=== PATIENT | male | born 1945 | race Caucasian/White ===

== ENCOUNTER 2019-11-20 08:30 | Outpatient (RCR) | payer MEDICARE, SELFPAY ==
--- NOTE | 2019-10-23 13:43 | PTOPEVAL ---
Thank you for referring this patient to [facility]. Please review, sign, date and return this plan of care YRIS. Pt seen for PT eval following THR on right. He demonstrates impairments with muscle weakness, decreased functional mobility with transfers, ambulation and negotiating steps. He demonstrates decreased safety and compliance with hip precautions. Cont PT 2-3x/wk x 6 wks. I agree with and certify that the following plan of care is medically necessary. Referring Physician Date Admitting Provider: Attending Provider: PHYSICIAN NOT ON STAFF Referring Provider: Dr. Yung Umana DO *PT Outpatient Evaluation Start: 10/23/19 12:38 Freq: Status: Active Protocol: Document 10/23/19 12:36 GRETA (Rec: 10/23/19 13:36 GRETA [id number]) Therapy Assessment Status Assessment Status Assessment Status Evaluation Outpatient Past Medical History Cardiovascular History Hx Coronary Artery Bypass Graft Yes: 2017 Hx Hypertension Yes Hx Myocardial Infarction Yes Gastrointestinal History Hx Gastroesophageal Reflux Disease Yes Musculoskeletal History Hx Joint Replacement Yes: right THR 10/09/19, left THR 2016 Endocrine History Hx Diabetes Yes Evaluation Information Problem Diagnosis right THR Onset 10/09/19 Cause OA Subjective Information Pt is s/p THR on 10/09/19 with 4 Query Text:As Reported By Patient/ day actue stay. He is on his Family posterior hip precautions of no hip add, no hip flex >90 dg and no hip IR. He has adaptive equipment for donning shoes/socks. States he is performing his HEP 2-3x/wk. He progressed to a SBQC 3 days ago from the walker. He reports limitations with walking, steps, donning shoes/ socks. He puts out a large garden and wants to return to that activties. He also performs wood working activities. Previous Treatments Previous Treatments For This Problem acute care Prior Level of Function Activity Level (Last 3 Months) Hand Dominance Right Activity of Daily Living Ability Independent Indoor/Home Mobility Independent Community Mobility Independent Stairs Ability Independent Cooking No Cleaning No Laundry No Shopping No Driving
--- NOTE | 2019-11-20 11:10 | PTOPEVAL ---
Thank you for referring this patient to [facility]. Please review, sign, date and return this plan of care YRIS. pt has received 9 therapy visits from 10/23-11/20/19 to address impairments related to his total hip replacement surgery. He has reached maximal potential with skilled therapy with therapy goals achieved. Plan for DC of skilled therapy with pt to continue with his HEP. I agree with and certify that the following plan of care is medically necessary. Referring Physician Date Attending Provider: PHYSICIAN NOT ON STAFF Referring Provider: *PT Outpatient Re-Evaluation/Discharge Start: 10/23/19 12:38 Freq: Status: Active Protocol: Document 11/20/19 08:30 CAP (Rec: 11/20/19 08:58 CAP [id number]) Evaluation Information Problem Diagnosis right THR Onset 10/09/19 Cause OA Additional Evaluation Detail Pt is s/p THR on 10/09/19 with 4 day actue stay. He is on his posterior hip precautions of no hip add, no hip flex >90 dg and no hip IR. He has adaptive equipment for donning shoes/socks. Subjective Information He is no longer using a AD at Query Text:As Reported By Patient/ home or community. Family He is performing his HEP daily . He walks his property daily for 30 min with min discomfort . Denies problems with IADL's and ADL's. HE cont to use his adaptive equipment for his shoes and socks. He has started his garden and cont to perform his work around the house. He is able to perform steps without difficulty or fear now. Pain Assessment Timing of Pain Assessment Timing of Pain Assessment Re-assessment Pain Scale Pain Scale Used Numeric (1 - 10) Self Report Pain Assessment Right Hip(s) Reported Pain Level 0 Pain Description Aching Pain Frequency Intermittent Greatest Pain Intensity 1 Pain Aggravating Factors Walking Pain Score Pain Score 0: Self Report Lower Extremity Range of Motion Hip Range of Motion Right Hip Abduction Range of Motion - Active 30 Hip Abduction Range of Motion - Passive 34 Lower Extremity Muscle Strength Testing Hip Strength Left Hip Flexion Strength 5 Normal Hip Extension Strength 4 Good Hip Abduction Strength 3+ Fair + Hip Adduction Strength 4 Good Hi
== END 2020-01-07 08:41 | disposition home or self-care (01) ==
LOC: ANHPT 08:30
DX: Z47.1 Aftercare following joint replacement surgery (principal); Z96.641 Presence of right artificial hip joint
CPT/HCPCS: 97110; 97162; 97530

== ENCOUNTER 2020-02-18 07:46 | Outpatient (CLI) | payer MEDICARE, SELFPAY ==
[2020-02-18 08:37] LABS: Cholesterol 142 mg/dL (0-200); HDL Direct 29 mg/dL; Triglycerides 212 mg/dL (<150)
[2020-02-18 08:49] LABS: LDL Cholesterol Direct 78 mg/dL
== END 2020-02-18 07:47 | disposition home or self-care (01) ==
LOC: ANHLAB 07:49
PROVIDERS: Visit Provider Internal Medicine Cardiovascular Disease
DX: E78.5 Hyperlipidemia, unspecified (principal); E11.69 Type 2 diabetes mellitus with other specified complication
CPT/HCPCS: 36415; 80061

== ENCOUNTER 2020-07-04 07:02 | Outpatient (CLI) | payer MEDICARE, SELFPAY ==
[2020-07-04 08:01] LABS: Alanine Aminotransferase 17 U/L (4-50); Albumin Level 4.5 g/dL (3.5-5.1); Alkaline Phosphatase 121 U/L (38-126); Anion Gap 11 mmol/L (8-16); Aspartate Amino Transferase 27 U/L (17-59); Bilirubin,Total 0.6 mg/dL (0.2-1.3); Blood Urea Nitrogen 20 mg/dL (9-20); Calcium 9.5 mg/dL (8.4-10.2); Carbon Dioxide 27 mmol/L (22-30); Chloride 103 mmol/L (98-107); Cholesterol 149 mg/dL (0-200); Estimated Glomerular Filt Rate > 60; Glucose 140 mg/dL (75-110); HDL Direct 33 mg/dL; Potassium 4.4 mmol/L (3.4-5.0); Sodium 141 mmol/L (137-145); Triglycerides 287 mg/dL (<150)
[2020-07-04 08:11] LABS: Creatinine Urine 238.6 mg/dL
[2020-07-04 08:11] LABS: Hemoglobin A1C 6.5 % (<5.7)
[2020-07-04 08:12] LABS: LDL Cholesterol Direct 73 mg/dL
[2020-07-04 08:14] LABS: MALB Creatinine Ratio 13.5 mg/g (0-30); Microalbumin Urine Random 32.2 mg/L (0-16.7)
== END 2020-07-04 07:03 | disposition home or self-care (01) ==
PROVIDERS: Visit Provider Physician Assistant
DX: E11.59 Type 2 diabetes mellitus with other circulatory complications (principal); I10 Essential (primary) hypertension; E78.5 Hyperlipidemia, unspecified; R53.83 Other fatigue
CPT/HCPCS: 36415; 80053; 80061; 82043; 83036; 84443

== ENCOUNTER 2021-07-13 07:46 | Outpatient (CLI) | payer MEDICARE, SELFPAY ==
[2021-07-13 08:30] LABS: Basophils Absolute Auto 0.1 K/mm3 (0.0-0.1); Basophils Percent Auto 0.7 % (0.2-1.2); Eosinophils Absolute Auto 0.4 K/mm3 (0-0.3); Eosinophils Percent Auto 4.9 % (0-4.4); Hematocrit 41.7 % (42.0-52.0); Hemoglobin 13.7 g/dL (14.0-18.0); Immature Granulocyte Absolute 0.02 K/mm3 (0.00-0.031); Immature Granulocyte Percent A 0.2 % (0-0.5); Lymphocytes Absolute Auto 2.48 K/mm3 (0.9-3.2); Mean Corpuscular HGB Conc 32.9 g/dl (32-36); Mean Corpuscular Hemoglobin 29.3 pg (26-34); Mean Corpuscular Volume 89.1 fl (80-100); Mean Platelet Volume 9.2 fl (7.4-10.4); Monocytes Absolute Auto 0.6 K/mm3 (0.1-0.6); Monocytes Percent Auto 6.4 % (2.6-8.5); Neutrophils Absolute Auto 5.3 K/mm3 (1.3-6.7); Neutrophils Percent Auto 59.8 % (45.5-73.1); Platelet Count Result 341 k/mm3 (150-375); Red Blood Count 4.68 M/mm3 (4.6-6.20); Red Cell Distribution Width 13.8 % (11.5-14.5); White Blood Count 8.9 K/mm3 (4.5-10.0)
[2021-07-13 09:39] LABS: Alanine Aminotransferase 13 U/L (4-50); Albumin Level 4.3 g/dL (3.5-5.1); Alkaline Phosphatase 110 U/L (38-126); Anion Gap 6 mmol/L (8-16); Aspartate Amino Transferase 26 U/L (17-59); Bilirubin,Total 0.5 mg/dL (0.2-1.3); Blood Urea Nitrogen 18 mg/dL (9-20); Calcium 9.1 mg/dL (8.4-10.2); Carbon Dioxide 28 mmol/L (22-30); Chloride 106 mmol/L (98-107); Glucose 128 mg/dL (65-110); Potassium 4.5 mmol/L (3.4-5.0); Sodium 140 mmol/L (137-145)
[2021-07-13 09:42] LABS: Estimated Glomerular Filt Rate > 60
[2021-07-14 11:33] LABS: Hemoglobin A1C 6.2 % (<5.7)
== END 2021-07-13 07:47 | disposition home or self-care (01) ==
LOC: ANHLAB 07:50
PROVIDERS: Visit Provider Physician Assistant
DX: E11.59 Type 2 diabetes mellitus with other circulatory complications (principal); I15.2 Hypertension secondary to endocrine disorders; E11.69 Type 2 diabetes mellitus with other specified complication; E78.5 Hyperlipidemia, unspecified
CPT/HCPCS: 36415; 80053; 83036; 84443; 85025

== ENCOUNTER 2022-07-28 07:07 | Outpatient (CLI) | payer MEDICARE, SELFPAY ==
[2022-07-28 07:45] LABS: Hemoglobin A1C 6.9 % (<5.7)
[2022-07-28 07:47] LABS: Alanine Aminotransferase 16 U/L (6-50); Albumin Level 4.5 g/dL (3.5-5.1); Alkaline Phosphatase 114 U/L (38-126); Anion Gap 10 mmol/L (8-16); Aspartate Amino Transferase 28 U/L (17-59); Bilirubin,Total 0.5 mg/dL (0.2-1.3); Blood Urea Nitrogen 16 mg/dL (9-20); Calcium 9.1 mg/dL (8.4-10.2); Carbon Dioxide 26 mmol/L (22-30); Chloride 106 mmol/L (98-107); Cholesterol 123 mg/dL (0-200); Estimated Glomerular Filt Rate > 60; Glucose 131 mg/dL (65-110); HDL Direct 29 mg/dL; Potassium 4.9 mmol/L (3.4-5.0); Sodium 142 mmol/L (137-145); Triglycerides 220 mg/dL (<150)
[2022-07-28 07:51] LABS: Basophils Percent Auto 0.4 % (0.2-1.2); Eosinophils Absolute Auto 0.5 K/mm3 (0-0.3); Eosinophils Percent Auto 4.8 % (0-4.4); Hematocrit 44.1 % (42.0-52.0); Hemoglobin 14.6 g/dL (14.0-18.0); Immature Granulocyte Absolute 0.04 K/mm3 (0.00-0.031); Immature Granulocyte Percent A 0.4 % (0-0.5); Lymphocytes Absolute Auto 2.49 K/mm3 (0.9-3.2); Lymphocytes Percent Auto 25.2 % (18.3-44.2); Mean Corpuscular HGB Conc 33.1 g/dl (32-36); Mean Corpuscular Hemoglobin 29.5 pg (26-34); Mean Corpuscular Volume 89.1 fl (80-100); Monocytes Absolute Auto 0.7 K/mm3 (0.1-0.6); Monocytes Percent Auto 6.9 % (2.6-8.5); Neutrophils Absolute Auto 6.2 K/mm3 (1.3-6.7); Neutrophils Percent Auto 62.3 % (45.5-73.1); Platelet Count Result 391 k/mm3 (150-375); Red Blood Count 4.95 M/mm3 (4.6-6.20); Red Cell Distribution Width 13.8 % (11.5-14.5); White Blood Count 9.9 K/mm3 (4.5-10.0)
[2022-07-28 07:59] LABS: LDL Cholesterol Direct 54 mg/dL
[2022-07-28 08:22] LABS: Creatinine Urine 94.2 mg/dL
[2022-07-28 08:26] LABS: MALB Creatinine Ratio 87.3 mg/g (0-30); Microalbumin Urine Random 82.2 mg/L (0-16.7)
== END 2022-07-28 07:08 | disposition home or self-care (01) ==
LOC: ANHLAB 07:11
PROVIDERS: Visit Provider Physician Assistant
DX: R53.83 Other fatigue (principal); E11.59 Type 2 diabetes mellitus with other circulatory complications; I15.2 Hypertension secondary to endocrine disorders
CPT/HCPCS: 36415; 80053; 80061; 82043; 82607; 83036; 84443; 85025

== ENCOUNTER 2023-05-16 07:31 | Outpatient (CLI) | payer MEDICARE, SELFPAY ==
[2023-05-16 08:31] LABS: Basophils Absolute Auto 0.1 K/mm3 (0.0-0.1); Basophils Percent Auto 0.5 % (0.2-1.2); Eosinophils Absolute Auto 0.3 K/mm3 (0-0.3); Eosinophils Percent Auto 2.9 % (0-4.4); Hematocrit 44.5 % (42.0-52.0); Hemoglobin 14.2 g/dL (14.0-18.0); Immature Granulocyte Absolute 0.03 K/mm3 (0.00-0.031); Immature Granulocyte Percent A 0.3 % (0-0.5); Lymphocytes Absolute Auto 2.35 K/mm3 (0.9-3.2); Lymphocytes Percent Auto 24.4 % (18.3-44.2); Mean Corpuscular HGB Conc 31.9 g/dl (32-36); Mean Corpuscular Hemoglobin 28.6 pg (26-34); Mean Corpuscular Volume 89.7 fl (80-100); Mean Platelet Volume 9.5 fl (7.4-10.4); Monocytes Absolute Auto 0.5 K/mm3 (0.1-0.6); Monocytes Percent Auto 5.4 % (2.6-8.5); Neutrophils Absolute Auto 6.4 K/mm3 (1.3-6.7); Neutrophils Percent Auto 66.5 % (45.5-73.1); Platelet Count Result 392 k/mm3 (150-375); Red Blood Count 4.96 M/mm3 (4.6-6.20); Red Cell Distribution Width 14.5 % (11.5-14.5); White Blood Count 9.7 K/mm3 (4.5-10.0)
[2023-05-16 08:53] LABS: Alanine Aminotransferase 13 U/L (6-50); Albumin Level 4.6 g/dL (3.5-5.1); Alkaline Phosphatase 102 U/L (38-126); Anion Gap 6 mmol/L (8-16); Aspartate Amino Transferase 24 U/L (17-59); Bilirubin,Total 0.6 mg/dL (0.2-1.3); Blood Urea Nitrogen 16 mg/dL (9-20); Calcium 9.3 mg/dL (8.4-10.2); Carbon Dioxide 30 mmol/L (22-30); Chloride 104 mmol/L (98-107); Cholesterol 120 mg/dL (0-200); Estimated Glomerular Filt Rate > 60; Glucose 114 mg/dL (65-110); HDL Direct 32 mg/dL; Potassium 4.7 mmol/L (3.4-5.0); Sodium 140 mmol/L (137-145); Triglycerides 183 mg/dL (<150)
[2023-05-16 09:04] LABS: LDL Cholesterol Direct 59 mg/dL
[2023-05-16 09:31] LABS: Creatinine Urine 157.8 mg/dL
[2023-05-16 09:36] LABS: MALB Creatinine Ratio 54.2 mg/g (0-30); Microalbumin Urine Random 85.6 mg/L (0-16.7)
== END 2023-05-16 07:32 | disposition home or self-care (01) ==
PROVIDERS: Visit Provider Physician Assistant
DX: R53.83 Other fatigue (principal); E11.69 Type 2 diabetes mellitus with other specified complication; E78.2 Mixed hyperlipidemia
CPT/HCPCS: 36415; 80053; 80061; 82043; 83036; 84443; 85025

== ENCOUNTER 2023-10-14 09:25 | Outpatient (CLI) | payer MEDICARE, SELFPAY ==
[2023-10-14 10:10] LABS: Anion Gap 7 mmol/L (8-16); Blood Urea Nitrogen 24 mg/dL (9-20); Calcium 9.2 mg/dL (8.4-10.2); Carbon Dioxide 25 mmol/L (22-30); Chloride 108 mmol/L (98-107); Estimated Glomerular Filt Rate > 60; Glucose 107 mg/dL (65-110); Potassium 4.7 mmol/L (3.4-5.0); Sodium 140 mmol/L (137-145)
== END 2023-10-14 09:26 | disposition home or self-care (01) ==
LOC: ANHLAB 09:28
PROVIDERS: Visit Provider Internal Medicine Cardiovascular Disease
DX: E11.59 Type 2 diabetes mellitus with other circulatory complications (principal); I15.2 Hypertension secondary to endocrine disorders
CPT/HCPCS: 36415; 80048

== ENCOUNTER 2023-11-19 08:02 | Outpatient (CLI) | payer MEDICARE, SELFPAY ==
[2023-11-19 08:48] LABS: Basophils Absolute Auto 0.1 K/mm3 (0.0-0.1); Basophils Percent Auto 0.5 % (0.2-1.2); Eosinophils Absolute Auto 0.5 K/mm3 (0-0.3); Eosinophils Percent Auto 4.5 % (0-4.4); Hematocrit 42.9 % (42.0-52.0); Hemoglobin 13.9 g/dL (14.0-18.0); Immature Granulocyte Absolute 0.03 K/mm3 (0.00-0.031); Immature Granulocyte Percent A 0.3 % (0-0.5); Lymphocytes Absolute Auto 2.32 K/mm3 (0.9-3.2); Lymphocytes Percent Auto 22.8 % (18.3-44.2); Mean Corpuscular HGB Conc 32.4 g/dl (32-36); Mean Corpuscular Volume 89.6 fl (80-100); Mean Platelet Volume 9.4 fl (7.4-10.4); Monocytes Absolute Auto 0.5 K/mm3 (0.1-0.6); Monocytes Percent Auto 4.7 % (2.6-8.5); Neutrophils Absolute Auto 6.8 K/mm3 (1.3-6.7); Neutrophils Percent Auto 67.2 % (45.5-73.1); Platelet Count Result 366 k/mm3 (150-375); Red Blood Count 4.79 M/mm3 (4.6-6.20); Red Cell Distribution Width 14.6 % (11.5-14.5); White Blood Count 10.2 K/mm3 (4.5-10.0)
[2023-11-19 11:18] LABS: Creatinine Urine 178.4 mg/dL
[2023-11-19 11:19] LABS: Alanine Aminotransferase 11 U/L (6-50); Albumin Level 4.5 g/dL (3.5-5.1); Alkaline Phosphatase 118 U/L (38-126); Anion Gap 10 mmol/L (8-16); Aspartate Amino Transferase 24 U/L (17-59); Bilirubin,Total 0.6 mg/dL (0.2-1.3); Blood Urea Nitrogen 31 mg/dL (9-20); Calcium 9.6 mg/dL (8.4-10.2); Carbon Dioxide 22 mmol/L (22-30); Chloride 110 mmol/L (98-107); Cholesterol 115 mg/dL (0-200); Estimated Glomerular Filt Rate 59; Glucose 133 mg/dL (65-110); HDL Direct 27 mg/dL; Sodium 142 mmol/L (137-145); Triglycerides 227 mg/dL (<150)
[2023-11-19 11:25] LABS: MALB Creatinine Ratio 42.8 mg/g (0-30); Microalbumin Urine Random 76.4 mg/L (0-16.7)
[2023-11-19 11:32] LABS: LDL Cholesterol Direct 58 mg/dL
[2023-11-19 11:50] LABS: Prostate Specific Antigen 1.6 ng/mL (< OR = 4.0)
[2023-11-19 11:52] LABS: Hemoglobin A1C 6.4 % (<5.7)
== END 2023-11-19 08:03 | disposition home or self-care (01) ==
LOC: ANHLAB 08:07
PROVIDERS: Visit Provider Physician Assistant
DX: Z12.5 Encounter for screening for malignant neoplasm of prostate (principal); E11.59 Type 2 diabetes mellitus with other circulatory complications; I15.2 Hypertension secondary to endocrine disorders; R53.83 Other fatigue
CPT/HCPCS: 36415; 80053; 80061; 82043; 82607; 83036; 84153; 84443; 85025; G0103

== ENCOUNTER 2025-02-19 06:43 | Outpatient (CLI) | payer MEDICARE, SELFPAY ==
--- OUTSIDE RECORDS SUMMARY | 2025-02-19 06:47 | XMS_ITS | CONTINUITY OF CARE DOCUMENT ---
Author Name valencia birmingham Address Unknown Organization [facility] Address [address] [place] [address] Phone [phone] Care Team Providers Care Cookie Padder Name Role Phone valencia birmingham Unavailable Unavailable
--- OUTSIDE RECORDS SUMMARY | 2025-02-19 06:47 | XMS_ITS | Encounter Summary ---
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 us Historical Provider Final Res ult documented in this encounter Visit Diagnoses Not on filedocumented in this encounter Care Teams Court Assistant Relationship Specialty Start Date End Date Joanne Hinkle PA [address] [place], [place] [phone] PCP - General Internal Medicine 01/25/19 Bubba Troncoso MD [address] [facility] [address] [place] [address] Consulting Physician Cardiology 09/11/19 documented as of this encounter
--- OUTSIDE RECORDS SUMMARY | 2025-02-19 06:47 | XMS_ITS | Encounter Summary ---
Author Organization [facility] Address [address] [place] [address] Care Team Providers Care Rodeo Clown Name Role Phone Joanne Hinkle Primary Care Provider [phone] Bubba Troncoso MD Unavailable [phone] Reason for Visit * Reason Onset Date Comments Medical Question/Miscellaneous 02/13/2025 Call Back 02/13/2025 Encounter Details Date Type Department Care Team (Late st Contact Info) Description 02/13/2025 Telephone [facility] Family Medicine [address] [place] [address] Joanne Hinkle PA [address] [place] [address] Medical Question/Miscellaneous; Call Back Social History Tobacco Use Types Packs/Day Years Used Date Smoking Tobacco: Former Cigarettes Q uit: 1954 Smokeless Tobacco: Never Alcohol Use Standard Drinks/Week Comments Not Currently 0 (1 standard drink = 0.6 oz pur e alcohol) socially AUDIT-C Answer Date Recorded Q1: How often do you have a drink containing alcohol? Never 02/11/2025 Q2: How many drinks containi ng alcohol do you have on a typical day when you are drinking? Patient does not drink Q3: How often do you have si x or more drinks on one occasion? 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 Labs faxed and mailed as requested. * Telephone Encounter - Vy Lantigua - 02/13/2025 9:37 AM CDT Call Back Caller???s Concern: Imani called back stating the fax number is [phone] and she would like a copy of orders mailed to her. Please advise Does message need to be routed? Yes-Action Needed * Telephone Encounter - Carmela Lea - 02/13/2025 9:29 AM CDT Medical Question/Miscellaneous Caller???s Concern: Patient's Imani, HIPAA verified, calling to request labs be sent over to [facility]. Will call back with fax number Does message need to be routed? No documented in this encounter Plan of Treatment Not on file documented as of this encounter Visit Diagnoses Not on filedocumented in this encounter Care Teams Rodeo Clown Relationship Specialty Start Date End Date Joanne Hinkle PA [address] [place], [place] [phone] PCP - General Internal Medicine 01/25/19 Bubba Troncoso MD [address] [place] [address] Consulting Physician Cardiology 09/11/19 documented as of this encounter
--- OUTSIDE RECORDS SUMMARY | 2025-02-19 06:47 | XMS_ITS | Encounter Summary ---
Author Organization [facility] Address [address] [place] [address] Care Team Providers Care Test Conductor Name Role Phone Joanne Hinkle Primary Care Provider [phone]- [phone] Bubba Troncoso MD Unavailable [phone] Encounter Details Date Type Department Care Team (Late st Contact Info) Description 10/28/2016 Orders Only [facility] ProviderKory MD [address] [place] [address] Social History Tobacco Use Types Packs/Day Years Used Date Smoking Tobacco: Former Cigarettes Q uit: 09/05/2004 Alcohol Use Standard Drinks/Week Comments No 0 (1 standard drink = 0.6 oz pur e alcohol) Sex and Gender Information Value Date Recorded Sex Assigned at Not on file 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 Historical Provider [facility] Final Result * CARDIOLOGY REPORT (10/28/2016) Anatomical Region Laterality Modality Other Narrative 10/28/2016 Ordered by an unspecified provider. us Historical Provider [facility] Final Result documented in this encounter Visit Diagnoses Not on filedocumented in this encounter Care Teams Test Conductor Relationship Specialty Start Date End Date Joanne Hinkle PA [address] [place], [place] [phone] PCP - General Internal Medicine 01/25/19 Bubba Troncoso MD [address] [place], [place] [phone] Consulting Physician Cardiology 09/11/19 documented as of this encounter
--- OUTSIDE RECORDS SUMMARY | 2025-02-19 06:47 | XMS_ITS | Encounter Summary ---
Author Organization [facility] Facility Care Team Providers Care Lime Boiler Name Role Phone Joanne Hinkle Primary Care Provider [phone] Bubba Troncoso MD Unavailable Encounter Details Date Type Department Care Team (Latest Contact Info) Description 11/01/2016 Orders Only [facility] ProviderKory MD [address] [place] [address] Social History Tobacco Use Types Packs/Day Years Used Date Smoking Tobacco: Former Cigarettes Q uit: 09/05/2004 Alcohol Use Standard Drinks/Week Comments No 0 (1 standard drink = 0.6 oz pur e alcohol) Sex and Gender Information Value Date Recorded Sex Assigned at Not on file 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 Historical Provider Final Res ult documented in this encounter Visit Diagnoses Not on filedocumented in this encounter Care Teams Lime Boiler Relationship Specialty Start Date End Date Joanne Hinkel PA [address] [place] [address] PCP - General Internal Medicine 01/25/19 Bubba Troncoso MD [address] [place] [address] Consulting Physician Cardiology 09/11/19 documented as of this encounter
--- OUTSIDE RECORDS SUMMARY | 2025-02-19 06:47 | XMS_ITS | Encounter Summary ---
Author Organization [facility] Facility Care Team Providers Care Blind Stitch Machine Operator Name Role Phone Joanne Hinkle Primary Care Provider [phone]- [phone] Bubba Troncoso MD Unavailable [phone] Encounter Details Date Type Department Care Team (Latest Contact Info) Description 02/28/2018 Orders Only [facility] ProviderKory MD [address] [place] [address] Social History Tobacco Use Types Packs/Day Years Used Date Smoking Tobacco: Former Smokeless Tobacco: Never Alcohol Use Standard Drinks/Week Comments No 0 (1 standard drink = 0.6 oz pur e alcohol) Sex and Gender Information Value Date Recorded Sex Assigned at Not on file 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 Historical Provider [facility] PANDEY Final Result documented in this encounter Visit Diagnoses Not on filedocumented in this encounter Care Teams Blind Stitch Machine Operator Relationship Specialty Start Date End Date Joanne Hinkle PA [address] [place] [address] PCP - General Internal Medicine 01/25/19 Bubba Troncoso MD [address] [address] Consulting Physician Cardiology 09/11/19 documented as of this encounter
--- OUTSIDE RECORDS SUMMARY | 2025-02-19 06:47 | XMS_ITS | Clinical Summary ---
Author Organization [facility] [place] [address] Address [address] [place] [address] Care Team Providers Care Inspector Packer Name Role Phone Joanne Hinkle Primary Care Provider [phone] Bubba Troncoso MD Unavailable [phone] Allergies No known active allergies Medications aspirin (ENTERIC COATED ASPIRIN) 81 mg tablet take 1 tablet by oral route every day 0 0 05/21/20 16 Active blood glucose diagnostic strip daily 06/18/20 16 Active blood glucose diagnostic strip by in vitro route daily 06/16/20 16 Active lancets [address] on the skin daily 06/18/20 16 Active vit C,O-Gi-qbksy-lutei n-zeaxan 250-90-40-1 mg capsule Rx: [facility] Formula 2 - Tablet Active melatonin 5 mg tablet Active metoprolol tartrate (LOPRESSOR) 25 mg immediate release tablet TAKE 1 TABLET BY MOUTH TWICE A DAY 180 tablet 2 03/28/20 24 Active lisinopriL (PRINIVIL,ZESTRIL) 20 mg tabletIndications: Hypertension associated with diabetes (HCC) Take 1 tablet (20 mg total) by mouth daily 90 tablet 1 07/06/20 24 Active atorvastatin (LIPITOR) 40 mg tabletIndications: Dyslipidemia associated with type 2 diabetes mellitus (HCC) Take 1 tablet by mouth once daily 90 tablet 01/01/20 25 Active traZODone (DESYREL) 50 mg tablet TAKE 1 TABLET BY MOUTH ONCE DAILY NIGHTLY NEEDED FOR SLEEP 180 tablet 01/01/20 25 Active sertraline (ZOLOFT) 100 mg tabletIndications: Moderate episode of recurrent major depressive disorder (HCC) Take 1 tablet by mouth once daily 100 tablet 12/30/19 25 Active ondansetron ODT (ZOFRAN-ODT) 4 mg disintegrating tabletIndications: Nausea Take 1 tablet (4 mg total) by mouth every 8 (eight) hours as needed for nausea or vomiting 20 tablet 1 02/12/20 25 Active metFORMIN (GLUCOPHAGE) 1,000 mg tabletIndications: Mixed diabetic hyperlipidemia associated with type 2 diabetes mellitus (HCC) Take 1 tablet (1,000 mg total) by mouth 2 (two) times a day with meals 180 tablet 1 07/06/20 24 025 Discontinued nitrofurantoin monohydrate (MACROBID) 100 mg capsule Take 1 capsule (100 mg total) by mouth 2 (two) times a day for 5 days 10 capsule 02/12/20 25 025 Active Problems Problem Noted Date Diagnosed Date BMI 26.0-26.9,adult 08/07/2024 Assessment & Plan (02/11/2025 2:26 PM CDT): Weight/BMI is in healthy range. Continue healthy lifestyle to maintain. Assessment & Plan (08/07/2024 7:24 AM DISTRICT ASSOCIATE JUDGE): BMI Follow-up includes: Discussed diet and exercising counseling. Need for influenza vaccination 08/07/2024 Assessment & Plan (08/07/2024 2:35 PM DISTRICT ASSOCIATE JUDGE): Flu vaccine updated in the office today Fatigue 08/07/2024 Assessment & Plan (08/07/2024 2:35 PM DISTRICT ASSOCIATE JUDGE): Probably multifactorial. Check labs and followup to re-evaluate Medicare annual wellness visit, subsequent 08/07 Assessment & Plan (08/07/2024 2:35 PM DISTRICT ASSOCIATE JUDGE): Encouraged healthy lifestyle, good nutrition and exercise. Encouraged Calcium and Vitamin D and weight bearing exercise for bone health. Reviewed immunizations. Reviewed age appropirate screenings. Medicare Wellness Documentation is completed within the chart Status post total replacement of right hip 10/26 H/O cardiomyopathy 03/12/2019 Hyperkalemia 02/20/2019 Assessment & Plan (03/03/2021 10:54 AM CDT): Avoid MARGIE due to hyperkalemia Assessment & Plan (07/02/2020 9:47 PM CDT): Has been stable. Continue to monitor labs Assessment & Plan (03/19/2019 9:54 PM CDT): Recheck was stable. Avoid high K foods and continue to monitor. Continue to hold Lisinopril. Hypertension associated with diabetes 02/16/2019 Assessment & Plan (08/07/2024 2:34 PM DISTRICT ASSOCIATE JUDGE): Bp is stable/in acceptable range for any co-morbidities. Encouraged to limit sodium intake and exercise for weight control. Continue metoprolol 25 mg b.i.d., lisinopril 20 Assessment & Plan (11/08/2023 10:46 AM DISTRICT ASSOCIATE JUDGE): Bp is stable/in acceptable range for any co-morbidities. Encouraged to limit sodium intake and exercise for weight control. Managed by Dr. Troncoso. Continue metoprolol 25 b.i.d., ASA 81, atorvastatin 40 and lisinopril 20 Assessment & Plan (08/01/2023 8:13 AM DISTRICT ASSOCIATE JUDGE): This is a significant, separately identifiable problem that was evaluated and managed on the same day as the wellness exam Encouraged to limit sodium intake and exercise for weight control. Blood pressure is not controlled today. He thinks he is only taking metoprolol 1 daily instead of b.i.d. as instructed. He will go home today and double check and give the office a call back so that we can make adjustments that are appropriate. If he is not taking will stressed the b.i.d. dosing if he is will need to restart lisinopril. Will have him follow up at the end of the week regardless for BP check Assessment & Plan (01/26/2023 10:48 AM CDT): Bp is stable/in acceptable range for any co-morbidities. Encouraged to limit sodium intake and exercise for weight control. Continue metoprolol Assessment & Plan (07/26/2022 7:21 PM DISTRICT ASSOCIATE JUDGE): Bp is stable/in acceptable range for any co-morbidities. Encouraged to limit sodium intake and exercise for weight control. Continue with metoprolol Assessment & Plan (01/25/2022 7:36 PM CDT): Bp is stable/in acceptable range for any co-morbidities. Encouraged to limit sodium intake and exercise for weight control. Continue metoprolol 25 b.i.d. Assessment & Plan (08/15/2021 12:18 PM DISTRICT ASSOCIATE JUDGE): Bp is stable/in acceptable range for any co-morbidities. Encouraged to limit sodium intake and exercise for weight control. Continue the metoprolol Assessment & Plan (03/03/2021 10:53 AM CDT): Bp is stable/in acceptable range for any co-morbidities. Encouraged to limit sodium intake and exercise for weight control. Continue metoprolol Assessment & Plan (07/02/2020 9:46 PM CDT): Bp is stable/in acceptable range for any co-morbidities. Encouraged to limit sodium intake and exercise for weight control. Assessment & Plan (01/21/2020 11:32 AM CDT): Stressed importance of continued A1c control to minimize the senior living effects of diabetes. Bring accuchecks to office when instructed to do so. Check A1c about every 3-6 months. Take medication as prescribed. Get annual eye exam. Encouraged MARGIE/Statin if able to tolerate. Encouraged weight control and encouraged diabetic diet and exercise. Bp is stable/in acceptable range for any co-morbidities. Encouraged to limit sodium intake and exercise for weight control. Stop the Metformin due to great control Continue the Trulicity Assessment & Plan (07/03/2019 10:12 PM CDT): Bp is stable/in acceptable range for any co-morbidities. Encouraged to limit sodium intake and exercise for weight control. Stressed importance of continued A1c control to minimize the long term care pharmacist effects of diabetes. Bring accuchecks to office when instructed to do so. Check A1c about every 3-6 months. Take medication as prescribed. Get annual eye exam. Encouraged MARGIE/Statin if able to tolerate. Encouraged weight control and encouraged diabetic diet and exercise. Continue the Trulicity and metformin. Recheck labs Assessment & Plan (02/20/2019 9:04 PM CDT): Bp is stable/in acceptable range for any co-morbidities. Encouraged to limit sodium intake and exercise for weight control. Moderate episode of recurrent major depressive d isorder 02/16/2019 Assessment & Plan (08/07/2024 2:34 PM DISTRICT ASSOCIATE JUDGE): Symptoms are stable with Zoloft 100 and trazodone 50 Assessment & Plan (11/08/2023 10:46 AM DISTRICT ASSOCIATE JUDGE): Symptoms are stable with Zoloft 100 mg. Assessment & Plan (08/01/2023 8:14 AM DISTRICT ASSOCIATE JUDGE): Stable with Zoloft 100 mg Assessment & Plan (01/26/2023 10:48 AM CDT): This is a significant, separately identifiable problem that was evaluated and managed on the same day as the wellness exam Patient's depression seems to be well controlled but he is cycling at night to where it is affecting asleep. Increase the Zoloft to 100 mg. May take 2 of the 50 mg tablets until they are exhausted then will transition back to 1 of the 100 mg tablets. Will continue to monitor closely. If he has increased symptoms he is to call immediately Assessment & Plan (07/26/2022 7:22 PM DISTRICT ASSOCIATE JUDGE): Stable with the Zoloft 50. He states he is having more difficulty sleeping. Could consider increasing the Zoloft versus adding trazodone. Will continue to monitor at this point Assessment & Plan (01/25/2022 7:37 PM CDT): Stable with Zoloft 50 mg Assessment & Plan (08/15/2021 12:18 PM DISTRICT ASSOCIATE JUDGE): Continue Zoloft Assessment & Plan (03/03/2021 10:56 AM CDT): Continue zoloft Assessment & Plan (07/02/2020 9:47 PM CDT): Continue Zoloft. Sxs are stable. Assessment & Plan (01/21/2020 9:43 PM CDT): Stable with Zoloft Assessment & Plan (09/30/2019 4:37 PM DISTRICT ASSOCIATE JUDGE): Stable with the Zoloft. Refills to pharmacy Primary insomnia 02/16/2019 Assessment & Plan (08/07/2024 2:34 PM DISTRICT ASSOCIATE JUDGE): Symptoms are stable with Zoloft 100 trazodone 50 Assessment & Plan (11/08/2023 10:46 AM DISTRICT ASSOCIATE JUDGE): Trazodone was started a few months ago with significant improvement. He is gained about 4-5 hours which is helping. Continue to monitor Assessment & Plan (08/01/2023 8:14 AM DISTRICT ASSOCIATE JUDGE): This is a significant, separately identifiable problem that was evaluated and managed on the same day as the wellness exam Still not sleeping great with increase of the Zoloft. Discussed additional treatment options as he is not getting relief with the melatonin. Will add trazodone 50 mg 1 hour prior to bedtime. Reviewed risks benefits alternatives side effects and proper use. Follow-up in 3-4 months to reassess or sooner for any other problems or concerns Assessment & Plan (07/26/2022 7:23 PM DISTRICT ASSOCIATE JUDGE): Stable with the Zoloft 50. He states he is having more difficulty sleeping. Could consider increasing the Zoloft versus adding trazodone. Will continue to monitor at this point Assessment & Plan (07/02/2020 9:47 PM CDT): Stable with ambien Assessment & Plan (01/21/2020 9:42 PM CDT): Continue Ambien H/O non-ST elevation myocardial infarction (NSTE [place]) 02/17/2017 PVC's (premature ventricular contractions) 02/17 Cardiomyopathy 05/21/2016 Overview (12/09/2016): Cardiomyopathy Assessment & Plan (08/07/2024 2:32 PM DISTRICT ASSOCIATE JUDGE): Continue per Cardiology. Will be transitioning care to Dr. Archer Metroprolol 25bid, ASA 81, Atorvastatin 40 lisinopril 20 Last seen 09/2023 and appears stable -- he continues to monitor his bp. 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 He manages his cardiomyopathy CAD and hypertension. Meds include metoprolol 25 b.i.d., aspirin 81, atorvastatin 40 and lisinopril 20. Patient appears compensated today. Continue regular follow-up with Dr. Troncoso Assessment & Plan (08/01/2023 8:12 AM DISTRICT ASSOCIATE JUDGE): Appears compensated today. Blood pressure is elevated so will determine if his metoprolol is being taking correctly before adding additional medications. Continue per Dr. Troncoso Assessment & Plan (01/26/2023 10:47 AM CDT): Continue per Dr. Troncoso. Follow-up is in March. Appears compensated today Assessment & Plan (07/26/2022 7:21 PM DISTRICT ASSOCIATE JUDGE): Appears compensated. Continue per Dr. Troncoso. Not currently on metoprolol aspirin and atorvastatin. Assessment & Plan (01/25/2022 7:35 PM CDT): Managed by Dr. Troncoso Appears compensated today. Continue metoprolol 25 b.i.d. Assessment & Plan (03/03/2021 10:54 AM CDT): Compensated. Continue per Dr. Troncoso Assessment & Plan (07/02/2020 9:46 PM CDT): Per cardio Appears compensated Mixed diabetic hyperlipidemi a associated with type 2 diabetes mellitus 05/21/2016 Overview (12/09/2016): DM type 2 with diabetic dyslipidemia Assessment & Plan (08/07/2024 2:32 PM DISTRICT ASSOCIATE JUDGE): Stressed importance of continued A1c control to minimize the long term care pharmacist effects of diabetes. Bring accuchecks to office when instructed to do so. Check A1c about every 3-6 months. Take medication as prescribed. Get annual eye exam. Encouraged MARGIE/Statin if able to tolerate. Encouraged weight control and encouraged diabetic diet and exercise. A1c is tightly controlled at 6.1 Continue metformin 1000 mg b.i.d. Assessment & Plan (11/08/2023 10:45 AM DISTRICT ASSOCIATE JUDGE): Stressed importance of continued A1c control to minimize the senior living effects of diabetes. Bring accuchecks to office when instructed to do so. Check A1c about every 3-6 months. Take medication as prescribed. Get annual eye exam. Encouraged MARGIE/Statin if able to tolerate. Encouraged weight control and encouraged diabetic diet and exercise. Encouraged patient to follow low fat/low chol diet like the Mediterranean diet. Increase good fats in the diet. Increase exercise. Monitor labs as needed. Continue atorvastatin and metformin 1000 b.i.d.. He is due for labs Assessment & Plan (08/01/2023 8:13 AM DISTRICT ASSOCIATE JUDGE): Encouraged patient to follow low fat/low chol diet like the Mediterranean diet. Increase good fats in the diet. Increase exercise. Monitor labs as needed. Continue atorvastatin Assessment & Plan (01/26/2023 10:47 AM CDT): Stressed importance of continued A1c control to minimize the long term care pharmacist effects of diabetes. Bring accuchecks to office when instructed to do so. Check A1c about every 3-6 months. Take medication as prescribed. Get annual eye exam. Encouraged MARGIE/Statin if able to tolerate. Encouraged weight control and encouraged diabetic diet and exercise. Encouraged patient to follow low fat/low chol diet like the Mediterranean diet. Increase good fats in the diet. Increase exercise. Monitor labs as needed. Due for labs to determine control. Continue metformin 100 b.i.d. and his atorvastatin Assessment & Plan (07/26/2022 7:21 PM DISTRICT ASSOCIATE JUDGE): Encouraged patient to follow low fat/low chol diet like the Mediterranean diet. Increase good fats in the diet. Increase exercise. Monitor labs as needed. Continue atorvastatin Assessment & Plan (01/25/2022 7:36 PM CDT): Encouraged patient to follow low fat/low chol diet like the Mediterranean diet. Increase good fats in the diet. Increase exercise. Monitor labs as needed. Continue atorvastatin Assessment & Plan (08/15/2021 12:17 PM DISTRICT ASSOCIATE JUDGE): Stressed importance of continued A1c control to minimize the long term care pharmacist effects of diabetes. Bring accuchecks to office when instructed to do so. Check A1c about every 3-6 months. Take medication as prescribed. Get annual eye exam. Encouraged MARGIE/Statin if able to tolerate. Encouraged weight control and encouraged diabetic diet and exercise. Encouraged patient to follow fat/low chol diet like the Mediterranean diet. Increase good fats in the diet. Increase exercise. Monitor labs as needed. Continue metformin and the statin. Assessment & Plan (03/03/2021 10:53 AM CDT): Encouraged patient to follow fat/low chol diet like the Mediterranean diet. Increase good fats in the diet. Increase exercise. Monitor labs as needed. Continue statin Assessment & Plan (07/02/2020 9:46 PM CDT): Encouraged patient to follow fat/low chol diet like the Mediterranean diet. Increase good fats in the diet. Increase exercise. Monitor labs as needed. [ Continue statin Assessment & Plan (01/21/2020 9:41 PM CDT): Stressed importance of continued A1c control to minimize the senior living effects of diabetes. Bring accuchecks to office when instructed to do so. Check A1c about every 3-6 months. Take medication as prescribed. Get annual eye exam. Encouraged MARGIE/Statin if able to tolerate. Encouraged weight control and encouraged diabetic diet and exercise. See HTn Assessment & Plan (09/30/2019 4:36 PM DISTRICT ASSOCIATE JUDGE): DM is well controlled. Continue the Ashley Decrease the metformin to 1gm daily. Will continue to monitor and may be able to discontinue further. Assessment & Plan (07/03/2019 10:12 PM CDT): Encouraged patient to continue low fat/low chol diet. Continue exercise. Increase good fats in the diet. Monitor labs as needed. Assessment & Plan (02/20/2019 9:04 PM CDT): Stressed importance of continued A1c control to minimize the senior living effects of diabetes. Bring accuchecks to office when instructed to do so. Check A1c about every 3-6 months. Take medication as prescribed. Get annual eye exam. Encouraged MARGIE/Statin if able to tolerate. Encouraged weight control and encouraged diabetic diet and exercise. Best control he has ever had. Continue current management regimen with the Ashley Welch and Metformin. 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 Troncoso. He is on beta-vinh statin and aspirin Assessment & Plan (08/01/2023 8:13 AM DISTRICT ASSOCIATE JUDGE): Continue statin beta-vinh and aspirin Assessment & Plan (01/26/2023 10:47 AM CDT): Stable. Continue per Dr. Troncoso. He is on beta-vinh aspirin and a statin Assessment & Plan (07/26/2022 7:21 PM DISTRICT ASSOCIATE JUDGE): Continue per Dr. Troncoso. Patient is on metoprolol aspirin and atorvastatin Assessment & Plan (01/25/2022 7:36 PM CDT): Managed by Dr. Troncoso. Patient is on beta-vinh statin and aspirin Assessment & Plan (08/15/2021 12:17 PM DISTRICT ASSOCIATE JUDGE): Continue statin beta-vinh and aspirin Assessment & Plan (03/03/2021 10:54 AM CDT): On BB ASA and statin Assessment & Plan (07/02/2020 9:45 PM CDT): Continue per Cardio On bb, ASA and statin Assessment & Plan (09/16/2019 9:40 AM DISTRICT ASSOCIATE JUDGE): Will probably require cardiology clearance prior to scheduling surgery. S/P CABG x 3 05/21/2016 Overview (12/09/2016): S/P CABG x 4 Tobacco dependence in remission 05/21/2016 Overview (12/09/2016): Tobacco abuse, in remission Assessment & Plan (01/26/2023 10:47 AM CDT): Continue cessation Resolved Problems Problem Noted Date Diagnosed Date Resolved Date CRISTINA (acute kidney injury) 12/02/2023 Positive depression screening 11/08/2023 11/08/2023 Annual physical exam 11/08/2023 024 Assessment & Plan (11/08/2023 10:46 AM DISTRICT ASSOCIATE JUDGE): Encouraged healthy lifestyle, good nutrition and exercise. Encouraged Calcium and Vitamin D and weight bearing exercise for bone health. Reviewed immunizations Reviewed age appropirate screenings. Prostate cancer screening 11/08/2023 Assessment & Plan (11/08/2023 10:46 AM DISTRICT ASSOCIATE JUDGE): Check labs Medicare annual wellness visit, subsequent 07/30/2023 11/08/2023 Assessment & Plan (08/01/2023 8:14 AM DISTRICT ASSOCIATE JUDGE): Encouraged healthy lifestyle, good nutrition and exercise. Encouraged Calcium and Vitamin D and weight bearing exercise for bone health. Reviewed immunizations. Reviewed age appropirate screenings. Medicare Wellness Documentation is completed within the chart Obesity (BMI 30-39.9) 01/26/20232022 Assessment & Plan (01/26/2023 10:10 AM CDT): Discussed the patient's BMI. The BMI is above average. BMI management plan is completed. BMI Follow-up includes: nutrition counseling, exercise counseling and education provided. BMI 30.0-30.9,adult 01/26/2023 08/01/20 Assessment & Plan (01/26/2023 10:10 AM CDT): Discussed the patient's BMI. The BMI is above average. BMI management plan is completed. BMI Follow-up includes: nutrition counseling, exercise counseling and education provided. Medicare annual wellness visit, subsequent 07/26/2022 01/25/2023 Assessment & Plan (07/26/2022 7:23 PM DISTRICT ASSOCIATE JUDGE): Encouraged healthy lifestyle, good nutrition and exercise. Encouraged Calcium and Vitamin D and weight bearing exercise for bone health. Reviewed immunizations. Reviewed age appropirate screenings. Medicare Wellness Documentation is completed within the chart BMI 28.0-28.9,adult 07/26/2022 08/07/20 Assessment & Plan (11/08/2023 10:46 AM DISTRICT ASSOCIATE JUDGE): Weight/BMI is in healthy range. Continue healthy lifestyle to maintain. Assessment & Plan (08/01/2023 7:42 AM DISTRICT ASSOCIATE JUDGE): Weight/BMI is in healthy range. Continue healthy lifestyle to maintain. Assessment & Plan (07/26/2022 7:22 PM DISTRICT ASSOCIATE JUDGE): Weight/BMI is in healthy range. Continue healthy lifestyle to maintain. Dyslipidemia associated with type 2 diabetes mellitus 01/25/2022 03/11/2022 Assessment & Plan (01/25/2022 7:37 PM CDT): Encouraged patient to follow low fat/low chol diet like the Mediterranean diet. Increase good fats in the diet. Increase exercise. Monitor labs as needed. Continue atorvastatin Obesity (BMI 30-39.9) 01/06/20222021 Assessment & Plan (01/06/2022 1:54 PM CDT): Obesity is unchanged. Discussed the patient's BMI. The BMI is above average. BMI management plan is completed. BMI Follow-up includes: nutrition counseling, exercise counseling and education provided. BMI 30.0-30.9,adult 01/06/2022 07/26/20 22 Assessment & Plan (01/06/2022 1:54 PM CDT): Obesity is unchanged. Discussed the patient's BMI. The BMI is above average. BMI management plan is completed. BMI Follow-up includes: nutrition counseling, exercise counseling and education provided. Need for immunization against influenza 08/15/2021 07/26/2022 Assessment & Plan (08/15/2021 12:19 PM DISTRICT ASSOCIATE JUDGE): Flu updated in the office today Obesity (BMI 30-39.9) 07/23/20212021 Assessment & Plan (07/23/2021 1:26 PM DISTRICT ASSOCIATE JUDGE): Obesity is unchanged. Discussed the patient's BMI. The BMI is above average. BMI management plan is completed. BMI Follow-up includes: nutrition counseling, exercise counseling and education provided. BMI 30.0-30.9,adult 07/23/2021 01/07/20 22 Assessment & Plan (07/23/2021 1:26 PM DISTRICT ASSOCIATE JUDGE): Obesity is unchanged. Discussed the patient's BMI. The BMI is above average. BMI management plan is completed. BMI Follow-up includes: nutrition counseling, exercise counseling and education provided. Obesity (BMI 30-39.9) 03/03/20212020 Assessment & Plan (03/03/2021 9:59 AM CDT): Obesity is unchanged. Discussed the patient's BMI. The BMI is above average. BMI management plan is completed. BMI Follow-up includes: nutrition counseling, exercise counseling and education provided. BMI 30.0-30.9,adult 03/03/2021 07/23/20 21 Assessment & Plan (03/03/2021 9:59 AM CDT): Obesity is unchanged. Discussed the patient's BMI. The BMI is above average. BMI management plan is completed. BMI Follow-up includes: nutrition counseling, exercise counseling and education provided. Fatigue 03/03/2021 11/08/2023 Assessment & Plan (01/26/2023 10:48 AM CDT): Probably multifactorial. Check labs and followup to re-evaluate Assessment & Plan (01/25/2022 7:37 PM CDT): Probably multifactorial. Check labs and followup to re-evaluate Assessment & Plan (08/15/2021 12:19 PM DISTRICT ASSOCIATE JUDGE): Probably multifactorial. Check labs and followup to re-evaluate Assessment & Plan (03/03/2021 10:57 AM CDT): Probably multifactorial. Check labs and followup to re-evaluate Needs flu shot 07/02/2020 03/02/2021 Assessment & Plan (07/02/2020 9:49 PM CDT): Updated in office Annual physical exam 07/02/2020 023 Assessment & Plan (01/26/2023 10:48 AM CDT): Encouraged healthy lifestyle, good nutrition and exercise. Encouraged Calcium and Vitamin D and weight bearing exercise for bone health. Reviewed immunizations Reviewed age appropirate screenings. Assessment & Plan (01/25/2022 7:37 PM CDT): Encouraged healthy lifestyle, good nutrition and exercise. Encouraged Calcium and Vitamin D and weight bearing exercise for bone health. Reviewed immunizations Reviewed age appropirate screenings. Assessment & Plan (08/15/2021 12:19 PM DISTRICT ASSOCIATE JUDGE): Encouraged healthy lifestyle, good nutrition and exercise. Encouraged Calcium and Vitamin D and weight bearing exercise for bone health. Reviewed immunizations Reviewed age appropirate screenings. Assessment & Plan (07/02/2020 9:49 PM CDT): Encouraged healthy lifestyle, good nutrition and exercise. Encouraged Calcium and Vitamin D and weight bearing exercise for bone health. Reviewed immunizations Reviewed age appropirate screenings. BMI 30.0-30.9,adult 01/21/2020 03/03/20 21 Assessment & Plan (07/02/2020 9:49 PM CDT): Obesity is unchanged. Discussed the patient's BMI. The BMI is above average. BMI management plan is completed. BMI Follow-up includes: nutrition counseling, exercise counseling and education provided. Assessment & Plan (01/21/2020 11:09 AM CDT): Obesity is unchanged. Discussed the patient's BMI. The BMI is above average. BMI management plan is completed. BMI Follow-up includes: nutrition counseling, exercise counseling and education provided. Medicare annual wellness visit, subsequent 01/21/2020 07/05/2021 Assessment & Plan (03/03/2021 10:57 AM CDT): Encouraged healthy lifestyle, good nutrition and exercise. Encouraged Calcium and Vitamin D and weight bearing exercise for bone health. Reviewed immunizations. Reviewed age appropirate screenings. Medicare Wellness Documentation is completed within the chart Assessment & Plan (01/21/2020 9:44 PM CDT): Encouraged healthy lifestyle, good nutrition and exercise. Encouraged Calcium and Vitamin D and weight bearing exercise for bone health. Reviewed immunizations Reviewed age appropirate screenings. See documentation on the chart. Other fatigue 01/21/2020 08/07/2024 Assessment & Plan (11/08/2023 10:46 AM DISTRICT ASSOCIATE JUDGE): Probably multifactorial. Check labs and followup to re-evaluate Assessment & Plan (07/26/2022 7:22 PM DISTRICT ASSOCIATE JUDGE): Probably multifactorial. Check labs and followup to re-evaluate Assessment & Plan (07/02/2020 9:49 PM CDT): Probably multifactorial. Check labs and followup to re-evaluate Encounter for pre-operative examination 09/30/2019 01/21/2020 Assessment & Plan (09/30/2019 4:34 PM DISTRICT ASSOCIATE JUDGE): Total hip planned. Reviewed surgical medical risk including procedure and anesthesia. 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 . All questions were answered. He was cleared and form completed/forwarded to surgeon. Primary osteoarthritis of right hip 09/16/2019 03/03/2021 Assessment & Plan (09/30/2019 4:34 PM DISTRICT ASSOCIATE JUDGE): Total hip planned. Reviewed surgical medical risk including procedure and anesthesia. 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 . All questions were answered. He was cleared and form completed/forwarded to surgeon. Assessment & Plan (09/16/2019 9:41 AM DISTRICT ASSOCIATE JUDGE): We discussed the risks, benefits and alternatives including not limited to infection, neurovascular compromise, stiffness, persistent pain, need for further surgery, leg length inequality, dislocation, DVT and PE. All questions are answered and informed consent is obtained. Patient is wanting to proceed with more definitive treatment. Pain is interfering with his activities of daily living. Patient feels like he has failed conservative treatment. BMI 31.0-31.9,adult 07/03/2019 01/21/20 20 Assessment & Plan (09/25/2019 10:34 AM DISTRICT ASSOCIATE JUDGE): Obesity is unchanged. Discussed the patient's BMI. The BMI is above average. BMI management plan is completed. BMI Follow-up includes: nutrition counseling, exercise counseling and education provided. Assessment & Plan (07/03/2019 1:30 PM CDT): Obesity is unchanged. Discussed the patient's BMI. The BMI is above average. BMI management plan is completed. BMI Follow-up includes: nutrition counseling, exercise counseling and education provided. Right hip pain 07/03/2019 01/21/2020 Assessment & Plan (07/03/2019 10:15 PM CDT): Check hip xray. Await results to determine plan Need for immunization against influenza 07/03/2019 01/21/2020 Assessment & Plan (07/03/2019 10:16 PM CDT): Updated in office today Need for 23-polyvalent pneum ococcal polysaccharide vaccine 07/03/2019 01/21/2020 Assessment & Plan (07/03/2019 10:16 PM CDT): Updated in office today BMI 36.0-36.9,adult 02/20/2019 07/03/20 19 Assessment & Plan (02/20/2019 9:03 AM CDT): Obesity is unchanged. Discussed the patient's BMI. The BMI is above average; BMI management plan is completed. General weight loss/lifestyle modification strategies discussed (elicit support from others; identify saboteurs; non-food rewards, etc). Encouraged increased exercise. Obesity (BMI 30-39.9) 02/20/20192020 Assessment & Plan (07/02/2020 9:46 PM CDT): Obesity is unchanged. Discussed the patient's BMI. The BMI is above average. BMI management plan is completed. BMI Follow-up includes: nutrition counseling, exercise counseling and education provided. Assessment & Plan (01/21/2020 11:09 AM CDT): Obesity is unchanged. Discussed the patient's BMI. The BMI is above average. BMI management plan is completed. BMI Follow-up includes: nutrition counseling, exercise counseling and education provided. Assessment & Plan (09/25/2019 10:34 AM DISTRICT ASSOCIATE JUDGE): Obesity is unchanged. Discussed the patient's BMI. The BMI is above average. BMI management plan is completed. BMI Follow-up includes: nutrition counseling, exercise counseling and education provided. Assessment & Plan (09/16/2019 9:41 AM DISTRICT ASSOCIATE JUDGE): We discussed the adverse effects of weight on osteoarthritis. For every 1 lb lost, 4-6 lb of stress is relieved from the knee and slightly less from the hip. Assessment & Plan (07/03/2019 1:29 PM CDT): Obesity is unchanged. Discussed the patient's BMI. The BMI is above average. BMI management plan is completed. BMI Follow-up includes: nutrition counseling, exercise counseling and education provided. Assessment & Plan (02/20/2019 9:03 AM CDT): Obesity is unchanged. Discussed the patient's BMI. The BMI is above average; BMI management plan is completed. General weight loss/lifestyle modification strategies discussed (elicit support from others; identify saboteurs; non-food rewards, etc). Encouraged increased exercise. Colon cancer screening 02/20/201901/25 Assessment & Plan (07/02/2020 9:48 PM CDT): Due to rescreen. Has dr. Stuton postcard to call him and set up the appt. Assessment & Plan (07/03/2019 10:12 PM CDT): GI order sent for screening colonoscopy Assessment & Plan (02/20/2019 9:05 PM CDT): Provided Dr. Sutton number for him to followup as he lost the postcard Old myocardial infarction 05/21/2016 Overview (12/09/2016): Non-ST elevation myocardial infarction (NSTEMI) greater than 8 weeks ago Chronic coronary artery disease 03/30/2016 03/11/2022 Encounters Date Type Department Care Team Description 02/13/2025 Orders Only [facility] Medicine [address] [place] [phone] Joanne Hinkle PA Other fatigue (Primary Dx); Hyperkalemia; Hypertension associated with diabetes (HCC); Mixed diabetic hyperlipidemia associated with type 2 diabetes mellitus (HCC); Leukocytosis, unspecified type; Anemia, unspecified type 02/13/2025 Results Follow-Up [facility] [address] [place] [address] Arely Bush LPN TANIA ab ql w/rflx to TANIA qn 02/13/[address] [place] [phone] Joanne Hinkle PA Medical Question/Miscellaneous ; Call Back 02/11/2025 2:30 PM CDT Office Visit [address] [place] [phone] Joanne Hinkle PA BMI 26.0-26.9,adult (Primary Dx); Dysuria; Type 2 diabetes mellitus with hyperlipidemia (HCC); Fatigue, unspecified type; Mixed diabetic hyperlipidemia associated with type 2 diabetes mellitus (HCC); Abnormal CBC 02/11/[address] [place] [phone] Joanne Hinkle PA Symptom Based Call 02/10/2025 Nurse Triage [address] [place] [phone] Joanne Hinkle PA 01/23/2025 Orders Only [address] [place] [phone] Joanne Hinkle PA Hyperkalemia (Primary Dx); Hypertension associated with diabetes (HCC); Other fatigue; Mixed diabetic hyperlipidemia associated with type 2 diabetes mellitus (HCC) 01/23/[address] [place] [phone] Joanne Hinkle PA Additional Services Or Orders from Last 3 Months Immunizations Immunization Administration Dates Next Due Influenza, Quadrivalent, Hig h Dose, Preservative Free, Intrr 07/26/2022,07/23/2021,07/02/2020 Influenza, Trivalent, High D ose, Split, Preservative Free, Intramuscular 08/07/2024,07/03/2019,05/17/2018,08/16 Influenza, Trivalent, Preser vative Free, Intramuscular 06/05/2015 Influenza, Unspecified 09/05/2023(Deferred: Ada ent Refused) [employer]) SARS-CoV-2 Vaccination 01/12/2021 Pfizer SARS-CoV-2 Monovalent Vaccination (12+ Yrs) PURPLE 08/26/2021 Pneumococcal Conjugate PCV 13 04/12/2016 Pneumococcal Polysaccharide PPV23 07/03/2019 ZOSTER LIVE 08/19/2015 Surgical History Surgery Date Site/Laterality Comments CORONARY ARTERY BYPASS GRAFT TOTAL HIP ARTHROPLASTY 10/06/2019 - 11/03/2019 Right Medical History Medical History Date Comments Cardiomyopathy (HCC) Coronary artery disease Hypertension Hyperlipidemia Arrhythmia Ischemic cardiomyopathy Myocardial infarction (HCC) Osteoarthritis Family History Medical History Relation Name Comments Diabetes Maternal Grandmother Arthritis Mother Heart disease Mother Other Other Family history of Cardiac arrhythmias; Relation Name Status Comments Father Maternal Grandmother Mother Other Social History Tobacco Use Types Packs/Day Years Used Date Smoking Tobacco: Former Cigarettes Q uit: 1953 Smokeless Tobacco: Never Tobacco Cessation:Counseling Given: Not Answered Alcohol Use Standard Drinks/Week Comments Not Currently [...] on file Legal Sex Male 5:59 AM DISTRICT ASSOCIATE JUDGE Gender Identity Not on file Sexual Orientation Not on file Occupation Industry Job Start Date Job End Date [employer]-Retired Not on file Not on fi le Not on file Obstetrics History Last Filed Vital Signs Vital Sign Reading Time Taken Comments Blood Pressure 120/60 02/11/2025 2:23 PM CDT Pulse 78 02/11/2025 2:23 PM CDT Temperature 36.8 C (98.2 F) 02/11/2025 2:23 PM CDT Respiratory Rate 16 08/01/2023 7:40 AM DISTRICT ASSOCIATE JUDGE Oxygen Saturation 98% 02/11/2025 2:23 PM CDT Inhaled Oxygen Concentration - - Weight 81.8 kg (180 lb 4.8 oz) 02/11/2025 2:23 P M CDT Height 175.3 cm (5' 9) 02/11/2025 2:23 PM CDT Body Mass Index 26.63 02/11/2025 2:23 PM CDT Plan of Treatment Health Maintenance Due Date Last Done Comments DTaP/Tdap/Td Vaccine (1 - Tdap) 12/20/1956 Hepatitis B Screening 1963 Abdominal Aortic Aneurysm (A AA) Screen 2009 Zoster Vaccine (2 of 3) 10/14/2015 08/19/2015 Foot Exam 03/03/2022 03/03/2021, 02/20/2019 Dilated Eye Exam 03/15/2024 03/15/2023, 03/15/2023 Covid-19 Vaccine (3 - 2023-2 5 season) 2024 08/26/2021, 01/12/2021 eGFR 11/18/2024 11/19/2023, 05/06, 07/13/2021, Additional history exists Well Visit 65+ 08/07/2025 08/07/2024, 01/2024, 08/01/2023, Additional history exists Hemoglobin A1C 08/13/2025 02/11/2025, 1211/2023, 11/19/2023, Additional history exists Albumin Creatinine Ratio, Urine 02/11/2026 02/11/2025, 11/19/2023, 05/16/2023, Additional history exists Depression Screening 02/11/2026 02/11/2025, 08/07/2024, 11/08/2023, Additional history exists Fall Risk Assessment 02/11/2026 02/11/2025, 08/07/2024, 11/08/2023, Additional history exists Lipid Panel 02/11/2026 02/11/2025, 11/03, 05/16/2023, Additional history exists Pneumococcal vaccine 65+ Completed 07/03/2019, 0804/2016 Influenza Vaccine Completed 08/07/2024, , 07/23/2021, Additional history exists Procedures Procedure Name Priority Date/Time Associated Diagnosis Comments POCT HEMOGLOBIN A1C Routine 02/11/2025 3 :03 PM CDT Type 2 diabetes mellitus with hyperlipidemia (HCC) POCT URINALYSIS DIPSTICK Routine 02/11/2025 3:02 PM CDT Dysuria POCT LIPID PANEL Routine 02/11/2025 2:59 PM CDT Type 2 diabetes mellitus with hyperlipidemia (HCC) ALBUMIN CREATININE RATIO, URINE Routine 02/11/2025 2:59 PM CDT Type 2 diabetes mellitus with hyperlipidemia (HCC) URINE CULTURE Routine 02/11/2025 2:56 PM CDT Dysuria COMPREHENSIVE METABOLIC PANEL Routine 11/19/2023 Hypertension associated with diabetes (HCC) HM DIABETES EYE EXAM Routine 03/15/2023 11:38 AM CDT from Last 3 Months or Most Recently Relevant to Health Maintenance Results * (ABNORMAL) POCT hemoglobin A1c (02/11/2025 3:03 PM CDT) Hemoglobin A1C, POC 6.4(A) 4.0 - 5.6 % Blood 02/11/2025 3:03 PM CDT Joanne SINCLAIR POINT OF CARE TEST ORDERAB LES Final Result * (ABNORMAL) POCT urinalysis dipstick (02/11/2025 3:02 PM CDT) Glucose, ur, POC Negative Negative Bilirubin, ur, POC Small(A) Negative Ketones, ur, POC Negative Negative Specific [place], POC 1.030 1.003 - 1.030 Blood, ur, POC Large(A) Negative pH, ur, POC 5.5 5.0 - 8.0 Protein, ur, POC 100.(A) Negative Urobilinogen, urine, POC 0.2 0.2 - 1.0 mg/dL Nitrite, ur, POC Negative Negative Leukocytes, ur, POC Trace(A) Negative Lot Number [id number] Urine 02/11/2025 3:02 PM CDT us Joanne SINCLAIR POINT OF CARE TEST ORDERAB LES Edited Result - Final * (ABNORMAL) POCT lipid panel (02/11/2025 2:59 PM CDT) Cholesterol, POC 119 <200 MG/DL HDL, POC 24(A) >=40 mg/dL Triglycerides, POC 239(A) <=149 mg/dL LDL Cholesterol POC 47 <=129 mg/dL Chol/HDL Ratio, POC 4.9 NONE Non-HDL Cholesterol, POC 94 NONE mg/dL Capillary blood 02/11/2025 2 :59 PM CDT Joanne SINCLAIR POINT OF CARE TEST ORDERAB LES Final Result * (ABNORMAL) Albumin Creatinine Ratio, Urine (02/11/2025 2:59 PM CDT) Creatinine, ur 309 20 - 320 mg/dL [facility] Comment: Verified by repeat analysis. Microalbumin, ur 20.0 See Note: mg/dL [facility] Comment: Reference Range: Reference Range Not established Microalbumin/creat ratio 65(H) <30 mg/g creat [facility] Comment: The ADA defines abnormalities in albumin excretion as follows: Albuminuria Category Result (mg/g creatinine) Normal to Mildly increased <30 Moderately increased 30-299 Severely increased > OR = 300 The ADA recommends that at least two of three specimens collected within a 3-6 month period be abnormal before considering a patient to be within a diagnostic category. Urine 02/11/2025 2:59 PM CDT 02/12/2025 4:58 AM CDT Joanne SINCLAIR LAB URINE ORDERABLES Final Result [facility] [address] [place] [id number] * Urine culture Urine, clean voided (02/11/2025 2:56 PM CDT) [facility] Comment: CULTURE, URINE, ROUTINE Micro Number: [id number] Test Status: Final Specimen Source: Urine, clean catch Specimen Quality: Adequate Result: No Growth Urine, clean voided 02/11/2025 2:56 PM CDT 02/12/2025 12:04 AM CDT Joanne SINCLAIR LAB MICROBIOLOGY - GENERAL ORDERABLES Final Result Performing Organization Address City/[facility]/ZIP Co de Phone Number [facility] [address] [place] [address] * (ABNORMAL) Comprehensive metabolic panel (11/19/2023) Pathologist [facility] SCRIBED Sodium 142 137 - 145 mmol/L EXTERNAL LAB SCRIBED Potassium 5.0 3.4 - 5.0 mmol/L EXTERNAL LAB SCRIBED Chloride 110(A) 98 - 107 mmol/L EXTERNAL LAB SCRIBED Carbon Dioxide 22 22 - 30 mmol/L EXTERNAL LAB SCRIBED Anion Gap 10 8 - 16 mmol/L EXTERNAL LAB SCRIBED Urea Nitrogen (BUN) 31(A) 9 - 20 mg/dl EXTERNAL LAB SCRIBED Creatinine 1.20 0.7 - 1.3 mg/dl EXTERNAL LAB SCRIBED Glucose 133(A) 65 - 110 mg/dl EXTERNAL LAB SCRIBED Calcium 9.6 8.4 - 10.2 mg/dl EXTERNAL LAB SCRIBED Bilirubin 0.6 0.2 - 1.3 mg/dl EXTERNAL LAB SCRIBED Plasma Protein 8.0 6.3 - 8.2 g/dl EXTERNAL LAB SCRIBED Albumin 4.5 3.5 - 5.1 g/dl EXTERNAL LAB SCRIBED Alkaline Phosphatase 118 38 - 126 Units/L EXTERNAL LAB SCRIBED Alanine Transaminase (ALT) 0 0 - 0 Units/L EXTERNAL LAB SCRIBED Aspartate Transaminase (AST) 0 0 - 0 Units/L EXTERNAL LAB SCRIBED eGFR in 0 0 - 0 EXTERNAL LAB SCRIBED eGFR in NonAfrican Kenyan 0 0 - 0 EXTERNAL LAB Blood 11/19/2023 Joanne SINCLAIR LAB BLOOD ORDERABLES Final Result EXTERNAL LAB * DIABETES EYE EXAM (03/15/2023 11:38 AM CDT) Historical Provider HEALTH MAINTENANCE Edited Result - Final from Last 3 Months or Most Recently Relevant to Health Maintenance Insurance [facility] TNA MEDICARE GOLD AETNA MEDICARE GOLD Care Teams Inspector Packer Relationship Specialty Start Date End Date Joanne Hinkle PA [address] [place] [address] PCP - General Internal Medicine 01/25/19 Bubba Troncoso MD [address] [place] [address] Consulting Physician Cardiology 09/11/19
--- OUTSIDE RECORDS SUMMARY | 2025-02-19 06:47 | XMS_ITS | Encounter Summary ---
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 us Historical Provider [facility] TERRIE PANDEY Final Result documented in this encounter Visit Diagnoses Not on filedocumented in this encounter Care Teams Mandarin Teacher Relationship Specialty Start Date End Date Joanne Hinkle PA [address] [place] [address] PCP - General Internal Medicine 01/25/19 Bubba Troncoso MD [address] [address] Consulting Physician Cardiology 09/11/19 documented as of this encounter
--- OUTSIDE RECORDS SUMMARY | 2025-02-19 06:47 | XMS_ITS | Encounter Summary ---
Author Organization [facility] Healthcare Address [address] [place] [address] Care Team Providers Care Inspector Final Assembly Conveyor Line Name Role Phone Joanne Hinkle Primary Care Provider [phone] Bubba Troncoso MD Unavailable [phone] Reason for Visit * Reason Onset Date Comments Additional Services Or Orders 01/23/2025 Encounter Details Date Type Department Care Team (Late st Contact Info) Description 01/23/2025 Telephone [facility] Family Medicine [address] [facility] [address] [place] [address] Joanne Hinkle PA [address] [facility] [address] [place] [address] Additional Services Or Orders Social History Tobacco Use Types Packs/Day Years Used Date Smoking Tobacco: Former Cigarettes Q uit: 1955 Smokeless Tobacco: Never Alcohol Use Standard Drinks/Week Comments Not Currently 0 (1 standard drink = 0.6 oz pur e alcohol) socially AUDIT-C Answer Date Recorded Q1: How often do you have a drink containing alc ohol? Never 11/08/2023 Average Number of Drinks Not on file 024 Q3: How often do you have si x or more drinks on one occasion? 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 * Telephone Encounter - Cathy Sena - 01/23/2025 9:45 AM CDT Medical Question/Miscellaneous Caller???s Concern: Patient , Imani on HIPAA (2020 is properly filled out, newest was blank), called and asked for the lab orders that was put in 08/07/24, that was sent to [facility] to now be mailed to them so they can physically take the orders to [facility]. Appointment for patient is 02/05/25; marking hp as these need to be mailed and then go get the labs done before the appointment. Please mail the 08/07/24 lab orders (that originally were sent to [facility]) to the patients address below: [address] [place] [address] [place] [address] Does message need to be routed? Yes-Action Needed documented in this encounter Plan of Treatment Not on file documented as of this encounter Visit Diagnoses Not on filedocumented in this encounter Care Teams Inspector Final Assembly Conveyor Line Relationship Specialty Start Date End Date Joanne Hinkle PA [address] [place] [address] PCP - General Internal Medicine 01/25/19 Bubba Troncoso MD [address] [place] [address] Consulting Physician Cardiology 09/11/19 documented as of this encounter
--- OUTSIDE RECORDS SUMMARY | 2025-02-19 06:47 | XMS_ITS | Encounter Summary ---
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 Gender Identity Not on file Sexual Orientation Not on file Occupation Industry Job Start Date Job End Date [employer]-Retired Not on file Not on fi le Not on file documented as of this encounter Plan of Treatment Not on file documented as of this encounter Visit Diagnoses Not on filedocumented in this encounter Care Teams Head Of Marketing Relationship Specialty Start Date End Date Joanne Hinkle PA [address] [address] [place] [address] PCP - General Internal Medicine 01/25/19 Bubba Troncoso MD [address] [address] [place] [address] Consulting Physician Cardiology 09/11/19 documented as of this encounter
--- OUTSIDE RECORDS SUMMARY | 2025-02-19 06:47 | XMS_ITS | Referral Summary ---
Author Organization 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 Name Role Phone Joanne Hinkle Primary Care Provider [phone] Bubba Troncoso MD Unavailable [phone] Encounters Date Type Department Care Team Description 02/13/2025 Orders Only [address] [place] [phone] Joanne Hinkle PA Other fatigue (Primary Dx); Hyperkalemia; Hypertension associated with diabetes (HCC); Mixed diabetic hyperlipidemia associated with type 2 diabetes mellitus (HCC); Leukocytosis, unspecified type; Anemia, unspecified type 02/13/2025 Results Follow-Up [address] [place] [phone] Arely Bush LPN TANIA ab ql w/rflx to TANIA qn 02/13/[address] [place] [phone] Joanne Hinkle PA Medical Question/Miscellaneous ; Call Back 02/11/[address] [place] [phone] Joanne Hinkle PA Symptom Based Call 02/11/2025 2:30 PM CDT Office Visit [address] [place] [phone] Joanne Hinkle PA BMI 26.0-26.9,adult (Primary Dx); Dysuria; Type 2 diabetes mellitus with hyperlipidemia (HCC); Fatigue, unspecified type; Mixed diabetic hyperlipidemia associated with type 2 diabetes mellitus (HCC); Abnormal CBC 02/10/2025 Nurse Triage [address] [place] [address] Joanne Hinkle PA 01/23/2025 Orders Only [address] [place] [address] Joanne Hinkle PA Hyperkalemia (Primary Dx); Hypertension associated with diabetes (HCC); Other fatigue; Mixed diabetic hyperlipidemia associated with type 2 diabetes mellitus (HCC) 01/23/[address] [place] [address] Joanne Hinkle PA Additional Services Or Orders from Last 3 Months Allergies No known active allergies Medications aspirin (ENTERIC COATED ASPIRIN) 81 mg tablet take 1 tablet by oral route every day 0 0 05/21/20 16 Active blood glucose diagnostic strip daily 06/18/20 16 Active blood glucose diagnostic strip by in vitro route daily 06/16/20 16 Active lancets 30 gauge [facility] [place] on the skin daily 06/18/20 16 Active vit C,N-Vt-fsmjz-lutei n-zeaxan 250-90-40-1 mg capsule Rx: Vision Formula [...] maintain. Assessment & Plan (08/07/2024 7:24 AM DISPATCHER CHIE[employer]URRY): BMI Follow-up includes: Discussed diet and exercising counseling. Need for influenza vaccination 08/07/2024 Assessment & Plan (08/07/2024 2:35 PM DISPATCHER [employer]IE[employer]URRY): Flu vaccine updated in the office today Fatigue 08/07/2024 Assessment & Plan (08/07/2024 2:35 PM DISPATCHER [employer]RY): Probably multifactorial. Check labs and followup to re-evaluate Medicare annual wellness visit, subsequent 08/07 Assessment & Plan (08/07/2024 2:35 PM DISPATCHER [employer]URRY): Encouraged healthy lifestyle, good nutrition and exercise. [...] 02/16/2019 Assessment & Plan (08/07/2024 2:34 PM DISPATCHER [employer]RY): Bp is stable/in acceptable range for any co-morbidities. Encouraged to limit sodium intake and exercise for weight control. Continue metoprolol 25 mg b.i.d., lisinopril 20 Assessment & Plan (11/08/2023 10:46 AM DISPATCHER [employer]RY): Bp is stable/in acceptable range for any co-morbidities. Encouraged to limit sodium intake and exercise for weight control. Managed by Dr. Troncoso. Continue metoprolol 25 b.i.d., ASA 81, atorvastatin 40 and lisinopril 20 Assessment & Plan (08/01/2023 8:13 AM DISPATCHER [employer]RY): This is a significant, separately identifiable problem [...] metoprolol Assessment & Plan (07/26/2022 7:21 PM DISPATCHER [employer]URRY): Bp is stable/in acceptable range for any co-morbidities. Encouraged to limit sodium intake and exercise for weight control. Continue with metoprolol Assessment & Plan (01/25/2022 7:36 PM CDT): Bp is stable/in acceptable range for any co-morbidities. Encouraged to limit sodium intake and exercise for weight control. Continue metoprolol 25 b.i.d. Assessment & Plan (08/15/2021 12:18 PM DISPATCHER [employer]RY): Bp is stable/in acceptable range for any [...] of continued A1c control to minimize the medical terminologist effects of diabetes. Bring accuchecks to office [...] of continued A1c control to minimize the fci effects of diabetes. Bring accuchecks to office [...] 02/16/2019 Assessment & Plan (08/07/2024 2:34 PM DISPATCHER [employer]): Symptoms are stable with Zoloft 100 and trazodone 50 Assessment & Plan (11/08/2023 10:46 AM DISPATCHER [employer]): Symptoms are stable with Zoloft 100 mg. Assessment & Plan (08/01/2023 8:14 AM DISPATCHER [employer]RY): Stable with Zoloft 100 mg Assessment & [...] immediately Assessment & Plan (07/26/2022 7:22 PM DISPATCHER [employer]RY): Stable with the Zoloft 50. He states he is having more difficulty sleeping. Could consider increasing the Zoloft versus adding trazodone. Will continue to monitor at this point Assessment & Plan (01/25/2022 7:37 PM CDT): Stable with Zoloft 50 mg Assessment & Plan (08/15/2021 12:18 PM DISPATCHER [employer]RY): Continue Zoloft Assessment & Plan (03/03/2021 10:56 AM CDT): Continue zoloft Assessment & Plan (07/02/2020 9:47 PM CDT): Continue Zoloft. Sxs are stable. Assessment & Plan (01/21/2020 9:43 PM CDT): Stable with Zoloft Assessment & Plan (09/30/2019 4:37 PM DISPATCHER [employer]RY): Stable with the Zoloft. Refills to pharmacy Primary insomnia 02/16/2019 Assessment & Plan (08/07/2024 2:34 PM DISPATCHER [employer]): Symptoms are stable with Zoloft 100 trazodone 50 Assessment & Plan (11/08/2023 10:46 AM DISPATCHER [employer]URRY): Trazodone was started a few months ago with significant improvement. He is gained about 4-5 hours which is helping. Continue to monitor Assessment & Plan (08/01/2023 8:14 AM DISPATCHER [employer]URRY): This is a significant, separately identifiable problem [...] concerns Assessment & Plan (07/26/2022 7:23 PM DISPATCHER [employer]RY): Stable with the Zoloft 50. He states he is having more difficulty sleeping. Could consider increasing the Zoloft versus adding trazodone. Will continue to monitor at this point Assessment & Plan (07/02/2020 9:47 PM CDT): Stable with wicho Assessment & Plan (01/21/2020 9:42 PM CDT): Continue Wicho H/O non-ST elevation myocardial infarction (NSTE OR) 02/17/2017 PVC's (premature ventricular contractions) 02/17 Cardiomyopathy 05/21/2016 Overview (12/09/2016): Cardiomyopathy Assessment & Plan (08/07/2024 2:32 PM DISPATCHER [employer]RY): Continue per Cardiology. Will be transitioning care to Dr. Archer Metroprolol 25bid, ASA 81, Atorvastatin 40 lisinopril 20 Last seen 09/2023 and appears stable -- he continues to monitor his bp. Appears compensated today Assessment & Plan (11/08/2023 10:45 AM DISPATCHER CHIE[employer] SLURRY): Dr. Troncoso is his block mechanic. He manages his cardiomyopathy CAD and hypertension. Meds include metoprolol 25 b.i.d., aspirin 81, atorvastatin 40 and lisinopril 20. Patient appears compensated today. Continue regular follow-up with Dr. Troncoso Assessment & Plan (08/01/2023 8:12 AM DISPATCHER [employer]RY): Appears compensated today. Blood pressure is elevated so will determine if his metoprolol is being taking correctly before adding additional medications. Continue per Dr. Troncoso Assessment & Plan (01/26/2023 10:47 AM CDT): Continue per Dr. Troncoso. Follow-up is in March. Appears compensated today Assessment & Plan (07/26/2022 7:21 PM DISPATCHER [employer]URRY): Appears compensated. Continue per Dr. Troncoso. Not [...] dyslipidemia Assessment & Plan (08/07/2024 2:32 PM DISPATCHER [employer]RY): Stressed importance of continued A1c control to minimize the medical terminologist effects of diabetes. Bring accuchecks to office when instructed to do so. Check A1c about every 3-6 months. Take medication as prescribed. Get annual eye exam. Encouraged MARGIE/Statin if able to tolerate. Encouraged weight control and encouraged diabetic diet and exercise. A1c is tightly controlled at 6.1 Continue metformin 1000 mg b.i.d. Assessment & Plan (11/08/2023 10:45 AM DISPATCHER [employer]URRY): Stressed importance of continued A1c control to minimize the medical terminologist effects of diabetes. Bring accuchecks to office [...] labs Assessment & Plan (08/01/2023 8:13 AM DISPATCHER [employer]IE[employer]URRY): Encouraged patient to follow low fat/low chol diet like the Mediterranean diet. Increase good fats in the diet. Increase exercise. Monitor labs as needed. Continue atorvastatin Assessment & Plan (01/26/2023 10:47 AM CDT): Stressed importance of continued A1c control to minimize the fci effects of diabetes. Bring accuchecks to office [...] atorvastatin Assessment & Plan (07/26/2022 7:21 PM DISPATCHER [employer]RY): Encouraged patient to follow low fat/low chol [...] atorvastatin Assessment & Plan (08/15/2021 12:17 PM DISPATCHER [employer]): Stressed importance of continued A1c control to minimize the fci effects of diabetes. Bring accuchecks to office [...] of continued A1c control to minimize the medical terminologist effects of diabetes. Bring accuchecks to office when instructed to do so. Check A1c about every 3-6 months. Take medication as prescribed. Get annual eye exam. Encouraged MARGIE/Statin if able to tolerate. Encouraged weight control and encouraged diabetic diet and exercise. See HTn Assessment & Plan (09/30/2019 4:36 PM DISPATCHER [employer]RY): DM is well controlled. Continue the Ashley [...] of continued A1c control to minimize the fci effects of diabetes. 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 Troncoso. He is on beta-vinh statin and aspirin Assessment & Plan (08/01/2023 8:13 AM DISPATCHER [employer]RY): Continue statin beta-vinh and aspirin Assessment & Plan (01/26/2023 10:47 AM CDT): Stable. Continue per Dr. Troncoso. He is on beta-vinh aspirin and a statin Assessment & Plan (07/26/2022 7:21 PM DISPATCHER [employer]URRY): Continue per Dr. Troncoso. Patient is on metoprolol aspirin and atorvastatin Assessment & Plan (01/25/2022 7:36 PM CDT): Managed by Dr. Troncoso. Patient is on beta-vinh statin and aspirin Assessment & Plan (08/15/2021 12:17 PM DISPATCHER [employer]URRY): Continue statin beta-vinh and aspirin Assessment & Plan (03/03/2021 10:54 AM CDT): On BB ASA and statin Assessment & Plan (07/02/2020 9:45 PM CDT): Continue per Cardio On bb, ASA and statin Assessment & Plan (09/16/2019 9:40 AM DISPATCHER [employer]URRY): Will probably require cardiology clearance prior to [...] 024 Assessment & Plan (11/08/2023 10:46 AM DISPATCHER [employer]RY): Encouraged healthy lifestyle, good nutrition and exercise. Encouraged Calcium and Vitamin D and weight bearing exercise for bone health. Reviewed immunizations Reviewed age appropirate screenings. Prostate cancer screening 11/08/2023 Assessment & Plan (11/08/2023 10:46 AM DISPATCHER [employer]IE[employer]URRY): Check labs Medicare annual wellness visit, subsequent 07/30/2023 11/08/2023 Assessment & Plan (08/01/2023 8:14 AM DISPATCHER [employer]RY): Encouraged healthy lifestyle, good nutrition and exercise. [...] 01/25/2023 Assessment & Plan (07/26/2022 7:23 PM DISPATCHER [employer]URRY): Encouraged healthy lifestyle, good nutrition and exercise. Encouraged Calcium and Vitamin D and weight bearing exercise for bone health. Reviewed immunizations. Reviewed age appropirate screenings. Medicare Wellness Documentation is completed within the chart BMI 28.0-28.9,adult 07/26/2022 08/07/20 Assessment & Plan (11/08/2023 10:46 AM DISPATCHER [employer]RY): Weight/BMI is in healthy range. Continue healthy lifestyle to maintain. Assessment & Plan (08/01/2023 7:42 AM DISPATCHER [employer]RY): Weight/BMI is in healthy range. Continue healthy lifestyle to maintain. Assessment & Plan (07/26/2022 7:22 PM DISPATCHER [employer]RY): Weight/BMI is in healthy range. Continue healthy [...] and education provided. BMI 30.0-30.9,adult 01/06/2022 07/26/20 Assessment & Plan (01/06/2022 1:54 PM CDT): Obesity is unchanged. Discussed the patient's BMI. The BMI is above average. BMI management plan is completed. BMI Follow-up includes: nutrition counseling, exercise counseling and education provided. Need for immunization against influenza 08/15/2021 07/26/2022 Assessment & Plan (08/15/2021 12:19 PM DISPATCHER [employer]RY): Flu updated in the office today Obesity (BMI 30-39.9) 07/23/20212021 Assessment & Plan (07/23/2021 1:26 PM DISPATCHER [employer]RY): Obesity is unchanged. Discussed the patient's BMI. The BMI is above average. BMI management plan is completed. BMI Follow-up includes: nutrition counseling, exercise counseling and education provided. BMI 30.0-30.9,adult 07/23/2021 01/07/20 Assessment & Plan (07/23/2021 1:26 PM DISPATCHER [employer]URRY): Obesity is unchanged. Discussed the patient's BMI. [...] re-evaluate Assessment & Plan (08/15/2021 12:19 PM DISPATCHER [employer]IE[employer]URRY): Probably multifactorial. Check labs and followup to [...] screenings. Assessment & Plan (08/15/2021 12:19 PM DISPATCHER [employer]IE[employer]URRY): Encouraged healthy lifestyle, good nutrition and exercise. [...] 08/07/2024 Assessment & Plan (11/08/2023 10:46 AM DISPATCHER CHIE[employer]URRY): Probably multifactorial. Check labs and followup to re-evaluate Assessment & Plan (07/26/2022 7:22 PM DISPATCHER CHIE[employer]URRY): Probably multifactorial. Check labs and followup to re-evaluate Assessment & Plan (07/02/2020 9:49 PM CDT): Probably multifactorial. Check labs and followup to re-evaluate Encounter for pre-operative examination 09/30/2019 01/21/2020 Assessment & Plan (09/30/2019 4:34 PM DISPATCHER [employer]IE[employer]URRY): Total hip planned. Reviewed surgical medical risk including procedure and anesthesia. He will obtain cardiac clearance from his block mechanic. . All questions were answered. He was cleared and form completed/forwarded to surgeon. Primary osteoarthritis of right hip 09/16/2019 03/03/2021 Assessment & Plan (09/30/2019 4:34 PM DISPATCHER [employer]IE[employer]URRY): Total hip planned. Reviewed surgical medical risk including procedure and anesthesia. He will obtain cardiac clearance from his block mechanic. . All questions were answered. He was cleared and form completed/forwarded to surgeon. Assessment & Plan (09/16/2019 9:41 AM DISPATCHER [employer]URRY): We discussed the risks, benefits and alternatives [...] failed conservative treatment. BMI 31.0-31.9,adult 07/03/2019 01/21/20 Assessment & Plan (09/25/2019 10:34 AM DISPATCHER [employer]URRY): Obesity is unchanged. Discussed the patient's BMI. [...] provided. Assessment & Plan (09/25/2019 10:34 AM DISPATCHER [employer]IE[employer]URRY): Obesity is unchanged. Discussed the patient's BMI. The BMI is above average. BMI management plan is completed. BMI Follow-up includes: nutrition counseling, exercise counseling and education provided. Assessment & Plan (09/16/2019 9:41 AM DISPATCHER [employer]IE[employer]URRY): We discussed the adverse effects of weight [...] PM CDT): Due to rescreen. Has dr. Sutton postcard to call him and set up [...] ago Chronic coronary artery disease 03/30/2016 03/11/2022 Immunizations Immunization Administration Dates Next Due Influenza, Quadrivalent, Hig h Dose, Preservative Free, Intrr 07/26/2022,07/23/2021,07/02/2020 Influenza, Trivalent, High D ose, Split, Preservative Free, Intramuscular 08/07/2024,07/03/2019,05/17/2018,08/16 Influenza, Trivalent, Preser vative Free, Intramuscular 06/05/2015 Influenza, Unspecified 09/05/2023(Deferred: Ada ent Refused) [place] (J&J) SARS-CoV-2 Vaccination 01/12/2021 Pfizer SARS-CoV-2 Monovalent Vaccination (12+ Yrs) PURPLE 08/26/2021 Pneumococcal Conjugate PCV 13 04/12/2016 Pneumococcal Polysaccharide PPV23 07/03/2019 ZOSTER LIVE 08/19/2015 Social History Tobacco Use Types Packs/Day Years [...] on file Legal Sex Male 5:59 AM DISPATCHER [employer]RY Gender Identity Not on file Sexual Orientation Not on file Occupation Industry Job Start Date Job End Date [employer]-Retired Not on file Not on fi le Not on file Last Filed Vital Signs Vital Sign Reading Time Taken Comments Blood Pressure 120/60 02/11/2025 2:23 PM CDT Pulse 78 02/11/2025 2:23 PM CDT Temperature 36.8 C (98.2 F) 02/11/2025 2:23 PM CDT Respiratory Rate 16 08/01/2023 7:40 AM DISPATCHER [employer]RY Oxygen Saturation 98% 02/11/2025 2:23 PM CDT Inhaled Oxygen Concentration - - Weight 81.8 kg (180 lb 4.8 oz) 02/11/2025 2:23 P M CDT Height 175.3 cm (5' 9) 02/11/2025 2:23 PM CDT Body Mass Index 26.63 02/11/2025 2:23 PM CDT Plan of Treatment Not on file Procedures Procedure Name Priority Date/Time Associated Diagnosis [...] Routine 11/19/2023 Hypertension associated with diabetes (HCC) DIABETES EYE EXAM Routine 03/15/2023 11:38 AM [...] Negative Ketones, ur, POC Negative Negative Specific [place], POC 1.030 1.003 - 1.030 Blood, ur, POC Large(A) Negative pH, ur, POC 5.5 5.0 - 8.0 Protein, ur, POC 100.(A) Negative Urobilinogen, urine, POC 0.2 0.2 - 1.0 mg/dL Nitrite, ur, POC Negative Negative Leukocytes, ur, POC Trace(A) Negative Lot Number [id number] Urine 02/11/2025 3:02 PM CDT us Joanne [...] Capillary blood 02/11/2025 2 :59 PM CDT us Joanne [facility] [...] 2:59 PM CDT 02/12/2025 4:58 AM CDT us Joanne [facility] URINE ORDERABLES Final Result [facility] [address] [place] [address] * Urine culture Urine, clean voided (02/11/2025 2:56 PM CDT) [facility] Comment: CULTURE, URINE, ROUTINE Micro Number: [id number] Test Status: Final Specimen Source: Urine, clean catch Specimen Quality: Adequate Result: No Growth Urine, clean voided 02/11/2025 2:56 PM CDT 02/12/2025 12:04 AM CDT Joanne [facility] MICROBIOLOGY - GENERAL ORDERABLES Final Result Performing Organization Address City/[facility]/ZIP Co de Phone Number [facility] [address] [place] [address] * (ABNORMAL) Comprehensive metabolic panel (11/19/2023) Pathologist [facility] SCRIBED Sodium 142 137 - 145 mmol/L [...] 0 EXTERNAL LAB SCRIBED eGFR in NonAfrican Niuean 0 0 - 0 EXTERNAL LAB Blood 11/19/2023 Joanne [facility] BLOOD ORDERABLES Final Result EXTERNAL LAB * DIABETES EYE EXAM (03/15/2023 11:38 AM CDT) Historical Provider HEALTH MAINTENANCE Edited Result - Final from Last 3 Months or Most Recently Relevant to Health Maintenance Insurance [facility] AETNA MEDICARE GOLD [facility] Care Teams Fishing Vessel Captain Relationship Specialty Start Date End Date Joanne Hinkle PA [address] [place] [address] PCP - General Internal Medicine 01/25/19 Bubba Troncoso MD [address] [place] [address] Consulting Physician Cardiology 09/11/19
[2025-02-19 07:50] LABS: Basophils Absolute Auto 0.1 K/mm3 (0.0-0.1); Basophils Percent Auto 0.6 % (0.2-1.2); Eosinophils Absolute Auto 0.3 K/mm3 (0-0.3); Eosinophils Percent Auto 3.9 % (0-4.4); Hematocrit 34.9 % (42.0-52.0); Hemoglobin 11.1 g/dL (14.0-18.0); Immature Granulocyte Absolute 0.03 K/mm3 (0.00-0.031); Immature Granulocyte Percent A 0.3 % (0-0.5); Lymphocytes Absolute Auto 1.76 K/mm3 (0.9-3.2); Lymphocytes Percent Auto 20.1 % (18.3-44.2); Mean Corpuscular HGB Conc 31.8 g/dl (32-36); Mean Corpuscular Hemoglobin 29.5 pg (26-34); Mean Corpuscular Volume 92.8 fl (80-100); Mean Platelet Volume 9.4 fl (7.4-10.4); Monocytes Absolute Auto 0.7 K/mm3 (0.1-0.6); Monocytes Percent Auto 8.4 % (2.6-8.5); Neutrophils Absolute Auto 5.8 K/mm3 (1.3-6.7); Neutrophils Percent Auto 66.7 % (45.5-73.1); Platelet Count Result 409 k/mm3 (150-375); Red Blood Count 3.76 M/mm3 (4.6-6.20); Red Cell Distribution Width 14.7 % (11.5-14.5); White Blood Count 8.7 K/mm3 (4.5-10.0)
[2025-02-19 08:09] LABS: Iron 74 ug/dL (49-181)
[2025-02-19 08:10] LABS: Alanine Aminotransferase 11 U/L (6-50); Alkaline Phosphatase 103 U/L (38-126); Anion Gap 9 mmol/L (4-12); Aspartate Amino Transferase 23 U/L (17-59); Bilirubin,Total 0.4 mg/dL (0.2-1.3); Blood Urea Nitrogen 49 mg/dL (9-20); Calcium 9.3 mg/dL (8.4-10.2); Carbon Dioxide 16 mmol/L (22-30); Chloride 113 mmol/L (98-107); Estimated Glomerular Filt Rate 28; Glucose 146 mg/dL (65-110); Magnesium 1.9 mg/dL (1.6-2.3); Potassium 5.6 mmol/L (3.4-5.0); Sodium 138 mmol/L (137-145); Total Protein 7.3 g/dL (6.3-8.2)
[2025-02-19 08:19] LABS: Percent Iron Saturation 26 % (20-50)
== END 2025-02-19 06:44 | disposition home or self-care (01) ==
LOC: ANHLAB 06:45
PROVIDERS: Visit Provider Physician Assistant
DX: D72.829 Elevated white blood cell count, unspecified (principal); R53.83 Other fatigue
CPT/HCPCS: 36415; 80053; 82607; 83540; 83550; 83735; 84443; 85025; 86038; 86039

== ENCOUNTER 2025-02-23 07:55 | Emergency (ER) | payer MEDICARE, SELFPAY ==
[2025-02-23] VITALS (35 sets, daily range): BP systolic 85–142; BP diastolic 36–70; PULSE 59–126; RESP 10–27; TEMP 36.6; O2SAT 85–100
--- NOTE | ~2025-02-23 | XR_ITS ---
EXAMINATION: XR chest 1V DATE: 02/23/2025 10:40 INDICATION: 203 days of cough TECHNIQUE: AP view of the chest was obtained. COMPARISON: Chest CT dated 06/25/2016 FINDINGS: Small calcified nodule near the left costophrenic angle consistent with old granulomatous disease. No other airspace opacities, pulmonary edema, pleural effusion or pneumothorax. The cardiomediastinal s ilhouette is normal. Median sternotomy wires and mediastinal surgical clips are seen, likely from elyse or coronary artery bypass grafting. IMPRESSION: 1. No acute cardiopulmonary disease. Reviewed, dictated and finalized at location A.
--- NOTE | ~2025-02-23 | CT_ITS ---
EXAMINATION: CT lumbar spine wo con DATE: 02/23/2025 10:41 INDICATION: Lower back pain. TECHNIQUE: Computed tomography (CT) of the lumbar spine was performed without intravenous contrast. A utomated exposure control and iterative reconstruction technique were employed. The dose-length produ ct was 535.03 mGy-cm. COMPARISON: None FINDINGS: 6 degrees lumbar levocurvature. Sagittal alignment is normal. Mild likely physiologic anterior wedgin g at T11 and T12. Lumbar vertebral body heights are normal. There are Schmorl's nodes at several of t he endplates in the lumbar and lower thoracic spine There are bridging osteophytes at multiple levels in the lower thoracic and upper lumbar spine consistent with diffuse idiopathic skeletal hyperostosi s (DISH). Moderate disc height loss at L1-L2 through L4-L5 with mild disc height loss at L5-S1 and T 11-T12. 1 cm right adrenal nodule, unchanged since chest CT dated 06/25/2016 consistent with an adeno ma. Paravertebral soft tissues are unremarkable. The following disc levels are specifically discussed : T11-T12: There is moderate bilateral facet joint osteoarthritis. There is no neural foraminal stenosi s. There is no central canal stenosis. T12-L1: There is moderate bilateral facet joint osteoarthritis. There is no neural foraminal stenosis . There is no central canal stenosis. L1-L2: Disc is bulging. There is moderate bilateral facet joint osteoarthritis. There is moderate lizzy ateral neural foraminal stenosis. There is mild central canal stenosis. L2-L3: Posterior disc osteophyte complex. There is severe bilateral facet joint osteoarthritis. There is moderate bilateral neural foraminal stenosis. There is moderate to severe central canal stenosis. L3-L4: The disc osteophyte complex. There is severe bilateral facet joint osteoarthritis. There is ar e bilateral neural foraminal stenosis. There is moderate to severe central canal stenosis. L4-L5: Disc is bulging. There is severe bilateral facet joint osteoarthritis. There is moderate bilat eral neural foraminal stenosis. There is mild central canal stenosis. L5-S1: Disc is bulging. There is severe bilateral facet joint osteoarthritis. There is moderate bilat eral neural foraminal stenosis. There is mild central canal stenosis. IMPRESSION: 1. Mild lumbar levocurvature with moderate spondylosis. Reviewed, dictated and finalized at location A.
--- NOTE | 2025-02-23 08:13 | ECG_ITS ---
Test Date: 2025-02-23 08:15:23 Measurements Intervals [place] Rate: 87 P: 76 GA: 164 QRS: -65 QRSD: 105 T: 53 QT: 351 QTc: 423 Interpretive Statements SINUS RHYTHM LEFT ANTERIOR FASCICULAR BLOCK BASELINE ARTIFACT- I, II, III, AVR, AVL, AVF, V1-V2 ABNORMAL ECG No previous ECG available for comparison Electronically Signed On 02-23-2025 08:33:05 CDT by Edvin Talley D.O.
[2025-02-23 08:23] LABS: Basophils Absolute Auto 0.1 K/mm3 (0.0-0.1); Basophils Percent Auto 0.5 % (0.2-1.2); Eosinophils Absolute Auto 0.4 K/mm3 (0-0.3); Eosinophils Percent Auto 3.5 % (0-4.4); Hematocrit 35.9 % (42.0-52.0); Hemoglobin 11.5 g/dL (14.0-18.0); Immature Granulocyte Absolute 0.03 K/mm3 (0.00-0.031); Immature Granulocyte Percent A 0.3 % (0-0.5); Lymphocytes Absolute Auto 1.55 K/mm3 (0.9-3.2); Lymphocytes Percent Auto 15.4 % (18.3-44.2); Mean Corpuscular Hemoglobin 29.3 pg (26-34); Mean Corpuscular Volume 91.3 fl (80-100); Monocytes Absolute Auto 0.7 K/mm3 (0.1-0.6); Monocytes Percent Auto 6.8 % (2.6-8.5); Neutrophils Absolute Auto 7.4 K/mm3 (1.3-6.7); Neutrophils Percent Auto 73.5 % (45.5-73.1); Platelet Count Result 414 k/mm3 (150-375); Red Blood Count 3.93 M/mm3 (4.6-6.20); Red Cell Distribution Width 14.8 % (11.5-14.5); White Blood Count 10.1 K/mm3 (4.5-10.0)
[2025-02-23 08:37] LABS: Alanine Aminotransferase 12 U/L (6-50); Albumin Level 4.2 g/dL (3.5-5.1); Alkaline Phosphatase 109 U/L (38-126); Anion Gap 15 mmol/L (4-12); Aspartate Amino Transferase 22 U/L (17-59); Bilirubin,Total 0.4 mg/dL (0.2-1.3); Blood Urea Nitrogen 44 mg/dL (9-20); Calcium 9.1 mg/dL (8.4-10.2); Carbon Dioxide 13 mmol/L (22-30); Chloride 113 mmol/L (98-107); Estimated CRCL calculation 25 ml/min; Estimated Glomerular Filt Rate 30; Glucose 182 mg/dL (65-110); Potassium 5.4 mmol/L (3.4-5.0); Sodium 141 mmol/L (137-145); Total Protein 7.7 g/dL (6.3-8.2)
--- NOTE | 2025-02-23 09:50 | ED.RECABL ---
HPI - Recheck/Abnormal Lab/Rx General Chief Complaint: Recheck/Abnormal Lab/Rx Stated Complaint: sent by his pcp co abnormal labs Time Seen by Provider: 02/23/25 09:04 Source: patient and family () Limitations: no limitations History of Present Illness HPI narrative: Patient presents to the emergency department after his primary care provider advised that he present due to abnormal labs. He had seen his primary care physician recently due to lack of appetite and nausea and vomiting as well as feeling weak. Outpatient labs were order which he had performed but then he was notified that his renal functions bad and that he had anemia. also states that there were issues glucose that his potassium was high. He has been drinking more fluids and notes that he is otherwise asymptomatic at this time as he feels better from the initial symptoms that brought him to his primary care physician. At this recent appointment the metformin that he had been was discontinued as it was that maybe this was contributing to his nausea and vomiting however he had been on this medication stably for >1 year. He denies any abdominal pain. He did recently complete a course of antibiotics for urinary tract infections. He denies any change in urine output. He has occasionally been short of breath and notes that he occasionally been coughing this is sometimes productive. He notes that he has been having below mid back pain although this is chronic. is asking if patient can receive something for anxiety as she is concerned he may want to leave given he doesn't like hospitals. He denies any dysuria; had been having hematuria. Not chronically on anticoagulation but is on aspirin. Related Data Allergies Allergy/AdvReac Type Severity Reaction Status Date / Time No Known Allergies Allergy Verified 02/23/25 08:14 [facility] Past Medical History Medical History Blood glucose abnormal Family History Family History (System 11/06/19 @ 16:26 by Mary Soto) Mother Family history of arthritis Other Diabetes mellitus Social History Social History Smoking status: Former smoker Smoking end date: 09/05/00 Alcohol intake: never Living arrangements: with family Additional living arrangements comments: Occupation/Education: retired Exam Narrative: GENERAL: Well-appearing, well-nourished, and in no acute distress. HEAD: Normocephalic, atraumatic. EYES: Non injected, non icteric ENT: Nares clear, no rhinorrhea or epistaxis. Gross auditory acuity intact. Moist mucous membranes NECK: Supple. No meningismus. CHEST: Speaking in full sentences. No respiratory distress. HEART: Regular rate and rhythm. . ABDOMEN: Soft, nondistended. No rigidity or guarding. Not peritoneal /BACK: No CVA tenderness bilaterally. No Tenderness to palpation of lumbar spine ; spinous processes are midline without bony step-offs. Patient able to demonstrate flexion extension of the lumbar spine. EXTREMITIES: Normal range of motion. No lower extremity edema. SKIN: Warm, dry, no rash. NEURO: No focal deficits. Alert and oriented. Answering questions. Following commands. Normal speech without aphasia or dysarthria. Rectal: Patient has a large non thrombosed external hemorrhoid at the 2 o'clock position. Normal sphincter tone. Normal brown stool on gloved finger. FOBT/Guiaic negative. PSYCH: Congruent mood and affect. Course Vital Signs Vital signs: Vital Signs Temperature 97.8 F 02/23/25 08:10 Pulse Rate 98 02/23/25 08:10 Respiratory Rate 16 02/23/25 08:10 Blood Pressure 116/55 L 02/23/25 08:10 Pulse Oximetry 100 02/23/25 08:10 Oxygen Delivery Room Air 02/23/25 08:10 Temperature 97.8 F 02/23/25 08:10 Pulse Rate 91 02/23/25 13:44 Respiratory Rate 16 02/23/25 13:44 Blood Pressure 131/51 L 02/23/25 13:44 Pulse Oximetry 97 02/23/25 13:44 Oxygen Delivery Room Air 02/23/25 08:10 MDM - Recheck/Abnormal Lab/Rx MDM Narrative Medical decision making narrative: Patient presents after his primary care provider advised that he come to the emergency department. Who recently some primary care provider lack of appetite, weakness, nausea, and vomiting. He had outpatient labs performed was told that his renal function was bad and that he was anemic. In the emergency department he is afebrile with vital signs notable for the low diastolic blood pressure but with a mean arterial pressure of 75. Patient had a hemoglobin of 13.9 in 2023 followed by 11.1 on most recent labs obtained outpatient and 11.5 today. Because this did represent a 2 g drop, digital rectal exam performed which was negative and patient denies any obvious rectal bleeding. He has had hematuria in the setting of recent urinary tract infection. Had initially ordered CT abdomen pelvis with contrast however given his renal function, will defer this at this time as the likelihood of a GI bleed is low at this time and in order to assess that he would need to be a CT with contrast versus CTA with contrast; lower utility for CT abdomen pelvis without contrast in this situation. His renal function had previously had a creatinine of 1.2 but was 2.28 on recent outpatient labs and 2.11 today. 1 L IV fluids ordered. He has mild hyperkalemia. High-dose albuterol is ordered. Will defer giving Lasix given his kidney function. Calcium is ordered. Will give 5 units of insulin rather than full 10 units given his impaired kidney function. Will defer giving additional dextrose given his hyperglycemia which does have an anion gap and slight acidosis although awaiting urinalysis and beta hydroxybutyrate. Because he is mildly acidotic, will give sodium bicarbonate as well. Patient has some abnormalities on the urinalysis but without bacteria and only 6-10 white blood cells. Culture of urine is ordered although it did not automatically reflex to this. Beta hydroxybutyrate is normal and there only trace ketones thus less concern or suspicion of rene DKA. Hemoglobin A1c is 6.3%, considered prediabetes. Repeat BMP shows that potassium is normal. Glucose has improved. Creatinine remains elevated although is trending in the right direction. Will order 2nd L fluid. Patient is resting comfortably at 12:35 p.m. when attempted to reassess him, he is sleeping. Will give bolus and then discuss next steps. Patient reassessed at 1:15 p.m.. Shared decision making with him and his regarding his workup thus far and the effect of the interventions. Patient and feel comfortable with being discharged and following up with their primary care physician/provider. They will call on Tuesday to see when it is appropriate to obtain outpatient labs though these are ordered with CC to PCP. Also advised that he discuss with primary care provider the possibility your consideration of restarting metformin and or alternative agent given that it is not clear that the nausea and vomiting he was experiencing was secondary to the metformin as this had been a longstanding medication and alternatively the symptoms could have been secondary to the kidney function/potassium/other. Differential Diagnosis Differential diagnosis: Likely other (CRISTINA/acute renal failure; electrolyte abnormalities; anemia; pneumonia; GI bleed; UTI; medication side effect) Lab Data Attestation: I reviewed the patient's lab results. Lab results narrative: Very mild leukocytosis 02/23/25 08:16 02/23/25 12:07 Labs: Lab Results 02/23/25 02/23/25 02/23/25 Range/Units 08:16 10:21 12:07 WBC 10.1 H (4.5-10.0) K/mm3 RBC 3.93 L (4.6-6.20) M/mm3 Hgb 11.5 L (14.0-18.0) g/dL Hct 35.9 L (42.0-52.0) % MCV 91.3 (80-100) fl MCH 29.3 (26-34) pg MCHC 32.0 (32-36) g/dl RDW 14.8 H (11.5-14.5) % Plt Count 414 H (150-375) k/mm3 MPV 9.0 (7.4-10.4) fl Immature Gran % (Auto) 0.3 (0-0.5) % Neut % (Auto) 73.5 H (45.5-73.1) % Lymph % (Auto) 15.4 L (18.3-44.2) % [place] % (Auto) 6.8 (2.6-8.5) % Eos % (Auto) 3.5 (0-4.4) % Baso % (Auto) 0.5 (0.2-1.2) % Lymph # (Auto) 1.55 (0.9-3.2) K/mm3 [place] # (Auto) 0.7 H (0.1-0.6) K/mm3 Eos # (Auto) 0.4 H (0-0.3) K/mm3 Baso # (Auto) 0.1 (0.0-0.1) K/mm3 Abs Immat Gran (auto) 0.03 (0.00-0.031) K/mm3 Absolute Neuts (auto) 7.4 H (1.3-6.7) K/mm3 Absolute Nucleated RBC 0.000 (0.0-0.012) K/mm3 Nucleated RBC % 0.0 (0.0-0.2) % Sodium 141 142 (137-145) mmol/L Potassium 5.4 H 4.1 (3.4-5.0) mmol/L Chloride 113 H 116 H (98-107) mmol/L Carbon Dioxide 13 L 14 L (22-30) mmol/L Anion Gap 15 H 12 (4-12) mmol/L BUN 44 H 41 H (9-20) mg/dL Creatinine 2.11 H 1.76 H (0.7-1.3) mg/dL Estim Creat Clear Calc 25 30 ml/min Estimated GFR 30 L 37 L (59 - ) Glucose 182 H 119 H (65-110) mg/dL Hemoglobin A1c 6.3 H (<5.7) % Calcium 9.1 8.7 (8.4-10.2) mg/dL Total Bilirubin 0.4 (0.2-1.3) mg/dL AST 22 (17-59) U/L ALT 12 (6-50) U/L Alkaline Phosphatase 109 (38-126) U/L Total Protein 7.7 (6.3-8.2) g/dL Albumin 4.2 (3.5-5.1) g/dL Beta-Hydroxybutyrate/Acetoacetate 0.15 (0.02-0.27) mmol/L Urine Color Yellow (Yellow) Urine Appearance Cloudy H (Clear) Urine pH 5.0 (5.0-9.0) Ur Specific [place] 1.015 (1.001-1.035) Urine Protein 1+ H (Negative) mg/dL Urine Glucose (UA) Negative (Negative) mg/dL Urine Ketones Trace H (Negative) mg/dL Ur Blood (Man) 3+ H (Negative) Urine Nitrate Negative (Negative) Urine Bilirubin Negative (Negative) Urine Urobilinogen 1.0 (<2.0) mg/dL Add Ur Microanalysis Reviewed Leukocyte Esterase Rfl 1+ H (Negative) [place]/UL Urine RBC 21-50 H (0-2) /hpf Urine WBC 6-10 H (0-3) /hpf Ur Squamous Epith Cells Moderate (Few) /hpf Urine Bacteria None seen /hpf Urine Casts 11-20 Imaging Data Radiologist's impression: Impressions Lumbar Spine CT 02/23/25 11:10 IMPRESSION: 1. Mild lumbar levocurvature with moderate spondylosis. Chest X-Ray 02/23/25 11:18 IMPRESSION: 1. No acute cardiopulmonary disease. ECG Data EKG #1: Attestation: I personally reviewed and interpreted this ECG as follows: ECG completion date: 02/23/25 ECG completion time: 08:15 Interpretation: Normal sinus rhythm at a rate of 87 beats per minute. GA interval 164. QRS 105. QT/QTC 351/395. Poor R-wave progression across the precordial leads. No T-wave inversion. Left axis deviation with Leads II, III and aVF negative and leads I and aVL positive. Discharge Plan Discharge Clinical Impression: Normocytic anemia, CRISTINA (acute kidney injury), Hyperkalemia, Lumbar spondylosis, Pre-diabetes Patient Disposition: Home Condition: Stable Instructions: Antibiotic Form, Acute Kidney Injury (DC), Nondiabetic Hyperglycemia (ED), Anemia (ED), Back Pain (ED), Lower Back Exercises (ED) Additional Instructions: As we discussed, your creatinine was elevated indicating acute kidney injury but improved after the 1st liter of fluids and a 2nd liter was given (previously 1.2, 2.28 on outpatient, 2.11 here and then 1.76 on repeat which was obtained between 1st and 2nd liters of fluids) . Your potassium was initially elevated but normal on repeat. You did have some anemia but not at transfusion level and no evidence of blood in stool. Your blood sugar was elevated initially but 119mg/dL on repeat and your Hemoglobin A1C was 6.3%, consistent with prediabetes. Although it is possible that your earlier symptoms were due to the metformin, you would been on that medication for years and your earlier symptoms may have been due to the kidney function and potassium abnormality. Your primary care provider may consider resuming this medication and/or starting an alternative medication. Call your primary care provider on Tuesday to discuss when they would like labs repeated. Orders have been provided but they may order their own. Do not hesitate to return to the emergency department with any new, worsening, or unmanaged symptoms. For your back pain, it is safe to take up to 4000 mg of acetaminophen/Tylenol per day. Would recommend avoiding NSAIDs like ibuprofen, Motrin, Advil, Aleve, Naprosyn, etc. given your kidney function. Patient Language: Kiswahili Prescriptions: New acetaminophen 500 mg capsule 1,000 mg PO Q6H PRN (Reason: pain) Qty: 30 0RF Other Ambulatory Orders: Basic Metabolic Panel (Routine) Timeframe: 3 Days Location: Determined by Patient Ordered By: Izabel Mo Complete Blood Count with Diff (Routine) Timeframe: 3 Days Location: Determined by Patient Ordered By: Izabel Mo Follow-up/Referrals: Manan,YAHIR Rubio [Primary Care Provider] - Time of Disposition: 13:29
[2025-02-23 10:39] LABS: Add Urine Microscopic? YES; Appearance Urine Cloudy (Clear); Bacteria Urine None Seen /hpf; Bilirubin Urine Negative (Negative); Blood Urine 3+ (Negative); Color Urine Yellow (Yellow); Glucose Urine UA Negative (Negative); Ketones Urine Trace mg/dL (Negative); Leukocyte Esterase Ur 1+ LEU/UL (Negative); Need Manual Microscopic Reviewed; Nitrate Urine Negative (Negative); Protein Urine 1+ mg/dL (Negative); RBC Urine 21-50 /hpf (0-2); Specific Grav Ur 1.015 (1.001-1.035); Squamous Epithelial Cell Urine Moderate /hpf (Few)
[2025-02-23] MEDS: ALBUTEROL SULFATE NEB 2.5 MG/3 ML INH 10 MG INHALATION (10:43)
[2025-02-23] MEDS: INSULIN HUMAN REGULAR (*BKC) 100 UNITS/ML IV PUSH (10:44)
[2025-02-23] MEDS: SODIUM BICARBONATE 8.4% 50 MEQ/50 ML SYRINGE IV PUSH (10:44)
[2025-02-23] MEDS: CALCIUM GLUCONATE 1,000 MG/10 ML VIAL 1000 MG IV PUSH (10:45)
[2025-02-23] MEDS: LORazepam INJ (*CRX) 2 MG/ML VIAL 0.5 MG IV PUSH (10:45)
[2025-02-23] MEDS: SODIUM CHLORIDE 0.9% IV 1,000 ML 999 ML IV CONT ×2 (10:46→12:55)
[2025-02-23 10:57] LABS: Hemoglobin A1C 6.3 % (<5.7)
[2025-02-23 11:00] LABS: Beta-Hydroxybutyrate/Acetoacetate 0.15 mmol/L (0.02-0.27)
[2025-02-23 12:30] LABS: Anion Gap 12 mmol/L (4-12); Blood Urea Nitrogen 41 mg/dL (9-20); Calcium 8.7 mg/dL (8.4-10.2); Carbon Dioxide 14 mmol/L (22-30); Chloride 116 mmol/L (98-107); Estimated CRCL calculation 30 ml/min; Estimated Glomerular Filt Rate 37; Glucose 119 mg/dL (65-110); Potassium 4.1 mmol/L (3.4-5.0); Sodium 142 mmol/L (137-145)
== END 2025-02-23 13:46 | disposition home or self-care (01) ==
PROVIDERS: Emergency Provider Student in an Organized Health Care Education/Training Program; PCP Physician Assistant
DX: N17.9 Acute kidney failure, unspecified (principal); D64.9 Anemia, unspecified; E87.5 Hyperkalemia; R73.03 Prediabetes; M47.816 Spondylosis without myelopathy or radiculopathy, lumbar region; Z87.891 Personal history of nicotine dependence; Z87.440 Personal history of urinary (tract) infections; I44.4 Left anterior fascicular block; R94.31 Abnormal electrocardiogram [ECG] [EKG]; Z79.82 Long term (current) use of aspirin
CPT/HCPCS: 36415; 71045; 72131; 80048; 80053; 81001; 82010; 83036; 85025; 87086; 93005; 94640; 96361; 96374; 96375; 99284; J0612; J1815; J2060; J7030

== ENCOUNTER 2025-02-27 06:44 | Outpatient (CLI) | payer MEDICARE, SELFPAY ==
[2025-02-27 07:36] LABS: Basophils Percent Auto 0.5 % (0.2-1.2); Eosinophils Absolute Auto 0.4 K/mm3 (0-0.3); Eosinophils Percent Auto 5.5 % (0-4.4); Hematocrit 31.6 % (42.0-52.0); Immature Granulocyte Absolute 0.03 K/mm3 (0.00-0.031); Immature Granulocyte Percent A 0.4 % (0-0.5); Lymphocytes Absolute Auto 1.08 K/mm3 (0.9-3.2); Lymphocytes Percent Auto 14.4 % (18.3-44.2); Mean Corpuscular HGB Conc 31.6 g/dl (32-36); Mean Corpuscular Hemoglobin 29.3 pg (26-34); Mean Corpuscular Volume 92.7 fl (80-100); Mean Platelet Volume 9.3 fl (7.4-10.4); Monocytes Absolute Auto 0.6 K/mm3 (0.1-0.6); Monocytes Percent Auto 7.6 % (2.6-8.5); Neutrophils Absolute Auto 5.4 K/mm3 (1.3-6.7); Neutrophils Percent Auto 71.6 % (45.5-73.1); Platelet Count Result 382 k/mm3 (150-375); Red Blood Count 3.41 M/mm3 (4.6-6.20); Red Cell Distribution Width 14.9 % (11.5-14.5); White Blood Count 7.5 K/mm3 (4.5-10.0)
[2025-02-27 07:56] LABS: Iron 39 ug/dL (49-181)
[2025-02-27 07:59] LABS: Alanine Aminotransferase 12 U/L (6-50); Albumin Level 3.6 g/dL (3.5-5.1); Alkaline Phosphatase 109 U/L (38-126); Anion Gap 8 mmol/L (4-12); Aspartate Amino Transferase 24 U/L (17-59); Bilirubin,Total 0.3 mg/dL (0.2-1.3); Blood Urea Nitrogen 20 mg/dL (9-20); Calcium 8.9 mg/dL (8.4-10.2); Carbon Dioxide 20 mmol/L (22-30); Chloride 113 mmol/L (98-107); Cholesterol 105 mg/dL (0-200); Estimated Glomerular Filt Rate 58; Glucose 121 mg/dL (65-110); HDL Direct 25 mg/dL; Magnesium 1.7 mg/dL (1.6-2.3); Potassium 4.8 mmol/L (3.4-5.0); Sodium 141 mmol/L (137-145); Total Protein 6.7 g/dL (6.3-8.2); Triglycerides 157 mg/dL (<150)
[2025-02-27 08:00] LABS: Hemoglobin A1C 6.3 % (<5.7)
[2025-02-27 08:06] LABS: Percent Iron Saturation 15 % (20-50)
[2025-02-27 08:12] LABS: LDL Cholesterol Direct 42 mg/dL
[2025-02-27 10:43] LABS: Creatinine Urine 123.1 mg/dL
[2025-02-27 10:47] LABS: MALB Creatinine Ratio 74.1 mg/g (0-30); Microalbumin Urine Random 91.2 mg/L (0-16.7)
== END 2025-02-27 06:45 | disposition home or self-care (01) ==
PROVIDERS: PCP Physician Assistant; Visit Provider Student in an Organized Health Care Education/Training Program
DX: D64.9 Anemia, unspecified (principal); R53.83 Other fatigue; D72.829 Elevated white blood cell count, unspecified; E11.52 Type 2 diabetes mellitus with diabetic peripheral angiopathy with gangrene; I15.2 Hypertension secondary to endocrine disorders
CPT/HCPCS: 36415; 80053; 80061; 82043; 82607; 82728; 83036; 83540; 83550; 83735; 84443; 85025; 86038; 86039

== ENCOUNTER 2025-08-08 07:42 | Outpatient (CLI) | payer MEDICARE, SELFPAY ==
--- OUTSIDE RECORDS SUMMARY | 2025-08-08 07:50 | XMS_ITS | Encounter Summary ---
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
--- OUTSIDE RECORDS SUMMARY | 2025-08-08 07:50 | XMS_ITS | Encounter Summary ---
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
--- OUTSIDE RECORDS SUMMARY | 2025-08-08 07:51 | XMS_ITS | Clinical Summary ---
Author Organization [facility] [address] Address [address] [place] [address] Care Team Providers Care Extruding Department Supervisor Name Role Phone Joanne Hinkle Primary Care Provider [phone] Bubba Troncoso MD Unavailable [phone] Allergies No known active allergies Medications aspirin (ENTERIC COATED ASPIRIN) 81 mg tablet take 1 tablet by oral route every day 0 0 05/21/20 16 Active blood glucose diagnostic strip daily 06/18/20 16 Active blood glucose diagnostic strip by in vitro route daily 06/16/20 16 Active lancets [address] on the skin daily 06/18/20 16 Active vit C,X-Cd-pqrfy-lute in-zeaxan 250-90-40-1 mg capsule Rx: [facility] 2 - Tablet Active metoprolol tartrate (LOPRESSOR) 25 mg immediate release tablet TAKE 1 TABLET BY MOUTH TWICE A DAY 180 tablet 2 03/28/20 24 Active lisinopriL (PRINIVIL,ZESTRIL ) 20 mg tabletIndications :Hypertension associated with diabetes (HCC) Take 1 tablet (20 mg total) by mouth daily 90 tablet 1 07/06/20 24 Active sertraline (ZOLOFT) 100 mg tabletIndications :Moderate episode of recurrent major depressive disorder (HCC) Take 1 tablet (100 mg total) by mouth daily 100 tablet 1 03/17/20 25 Active atorvastatin (LIPITOR) 40 mg tabletIndications :Dyslipidemia associated with type 2 diabetes mellitus (HCC) Take 1 tablet by mouth once daily 90 tablet 04/23/20 25 Active traZODone (DESYREL) 50 mg tabletIndications :Insomnia, unspecified type Take 1 tablet (50 mg total) by mouth nightly as needed for sleep 30 tablet 07/26/20 25 Active melatonin 5 mg tablet 025 Discontinued traZODone (DESYREL) 50 mg tablet TAKE 1 TABLET BY MOUTH ONCE DAILY NIGHTLY NEEDED FOR SLEEP 180 tablet 01/01/20 25 025 Discontinued(R eorder) ondansetron ODT (ZOFRAN-ODT) 4 mg disintegrating tabletIndications :Nausea Take 1 tablet (4 mg total) by mouth every 8 (eight) hours as needed for nausea or vomiting 20 tablet 1 02/12/20 25 025 Discontinued Active Problems Problem Noted Date Diagnosed Date BMI 29.0-29.9,adult 07/24/2025 Assessment & Plan (07/24/2025 8:39 AM MANAGER [employer]): Weight/BMI is in healthy range. Continue healthy lifestyle to maintain. Iron deficiency anemia due to chronic blood loss 03/17/2025 Assessment & Plan (03/17/2025 11:46 PM CDT): Recheck labs Fatigue 08/07/2024 Assessment & Plan (03/17/2025 11:45 PM CDT): Probably multifactorial. Check labs and followup to re-evaluate Assessment & Plan (08/07/2024 2:35 PM MANAGER [employer]): Probably multifactorial. Check labs and followup to re-evaluate Status post total replacement of right hip 10/26 H/O cardiomyopathy 03/12/2019 Hyperkalemia 02/20/2019 Assessment & Plan (03/17/2025 11:45 PM CDT): Recheck labs Assessment & Plan (03/03/2021 10:54 AM CDT): Avoid MARGIE due to hyperkalemia Assessment & Plan (07/02/2020 9:47 PM CDT): Has been stable. Continue to monitor labs Assessment & Plan (03/19/2019 9:54 PM CDT): Recheck was stable. Avoid high K foods and continue to monitor. Continue to hold Lisinopril. Hypertension associated with diabetes 02/16/2019 Assessment & Plan (03/17/2025 11:45 PM CDT): Bp is stable/in acceptable range for any co-morbidities. Encouraged to limit sodium intake and exercise for weight control. 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 Bring accuchecks to office when instructed to do so. Check A1c about every 3-6 months. Take medication as prescribed. Get annual eye exam. Encouraged MARGIE/Statin if able to tolerate. Encouraged weight control and encouraged diabetic diet and exercise. Hold the metformin as may be able to diet control Continue lisinopril and metroprolol. Assessment & Plan (08/07/2024 2:34 PM MANAGER [employer]): Bp is stable/in acceptable range for any co-morbidities. Encouraged to limit sodium intake and exercise for weight control. Continue metoprolol 25 mg b.i.d., lisinopril 20 Assessment & Plan (11/08/2023 10:46 AM MANAGER [employer]): Bp is stable/in acceptable range for any co-morbidities. Encouraged to limit sodium intake and exercise for weight control. Managed by Dr. Troncoso. Continue metoprolol 25 b.i.d., ASA 81, atorvastatin 40 and lisinopril 20 Assessment & Plan (08/01/2023 8:13 AM MANAGER [employer]): This is a significant, separately identifiable problem [...] metoprolol Assessment & Plan (07/26/2022 7:21 PM MANAGER [employer]): Bp is stable/in acceptable range for any co-morbidities. Encouraged to limit sodium intake and exercise for weight control. Continue with metoprolol Assessment & Plan (01/25/2022 7:36 PM CDT): Bp is stable/in acceptable range for any co-morbidities. Encouraged to limit sodium intake and exercise for weight control. Continue metoprolol 25 b.i.d. Assessment & Plan (08/15/2021 12:18 PM MANAGER [employer]): Bp is stable/in acceptable range for any [...] of continued A1c control to minimize the correction effects of diabetes. 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 Bring accuchecks to office [...] depressive d isorder 02/16/2019 Assessment & Plan (03/17/2025 11:44 PM CDT): Stable with Zoloft and Trazodone. Assessment & Plan (08/07/2024 2:34 PM MANAGER [employer]): Symptoms are stable with Zoloft 100 and trazodone 50 Assessment & Plan (11/08/2023 10:46 AM MANAGER [employer]): Symptoms are stable with Zoloft 100 mg. Assessment & Plan (08/01/2023 8:14 AM MANAGER [employer]): Stable with Zoloft 100 mg Assessment & [...] immediately Assessment & Plan (07/26/2022 7:22 PM MANAGER [employer]): Stable with the Zoloft 50. He states he is having more difficulty sleeping. Could consider increasing the Zoloft versus adding trazodone. Will continue to monitor at this point Assessment & Plan (01/25/2022 7:37 PM CDT): Stable with Zoloft 50 mg Assessment & Plan (08/15/2021 12:18 PM MANAGER [employer]): Continue Zoloft Assessment & Plan (03/03/2021 10:56 AM CDT): Continue zoloft Assessment & Plan (07/02/2020 9:47 PM CDT): Continue Zoloft. Sxs are stable. Assessment & Plan (01/21/2020 9:43 PM CDT): Stable with Zoloft Assessment & Plan (09/30/2019 4:37 PM MANAGER [employer]): Stable with the Zoloft. Refills to pharmacy Primary insomnia 02/16/2019 Assessment & Plan (08/07/2024 2:34 PM MANAGER [employer]): Symptoms are stable with Zoloft 100 trazodone 50 Assessment & Plan (11/08/2023 10:46 AM MANAGER [employer]): Trazodone was started a few months ago with significant improvement. He is gained about 4-5 hours which is helping. Continue to monitor Assessment & Plan (08/01/2023 8:14 AM MANAGER [employer]): This is a significant, separately identifiable problem [...] concerns Assessment & Plan (07/26/2022 7:23 PM MANAGER [employer]): Stable with the Zoloft 50. He states he is having more difficulty sleeping. Could consider increasing the Zoloft versus adding trazodone. Will continue to monitor at this point Assessment & Plan (07/02/2020 9:47 PM CDT): Stable with ambien Assessment & Plan (01/21/2020 9:42 PM CDT): Continue Ambien H/O non-ST elevation myocardial infarction (NSTE OK) 02/17/2017 PVC's (premature ventricular contractions) 02/17 Mixed diabetic hyperlipidemi a associated with type 2 diabetes mellitus 05/21/2016 Overview (12/09/2016): DM type 2 with diabetic dyslipidemia Assessment & Plan (03/17/2025 11:45 PM CDT): Stressed importance of continued A1c control to minimize the correction effects of diabetes. Bring accuchecks to office [...] exercise. Monitor labs as needed. Continue atorvastatin 40 Assessment & Plan (08/07/2024 2:32 PM MANAGER [employer]): Stressed importance of continued A1c control to minimize the correction effects of diabetes. Bring accuchecks to office when instructed to do so. Check A1c about every 3-6 months. Take medication as prescribed. Get annual eye exam. Encouraged MARGIE/Statin if able to tolerate. Encouraged weight control and encouraged diabetic diet and exercise. A1c is tightly controlled at 6.1 Continue metformin 1000 mg b.i.d. 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 Bring accuchecks to office [...] labs Assessment & Plan (08/01/2023 8:13 AM MANAGER [employer]): Encouraged patient to follow low fat/low chol diet like the Mediterranean diet. Increase good fats in the diet. Increase exercise. Monitor labs as needed. Continue atorvastatin Assessment & Plan (01/26/2023 10:47 AM CDT): Stressed importance of continued A1c control to minimize the correction effects of diabetes. Bring accuchecks to office [...] atorvastatin Assessment & Plan (07/26/2022 7:21 PM MANAGER [employer]): Encouraged patient to follow low fat/low chol [...] atorvastatin Assessment & Plan (08/15/2021 12:17 PM MANAGER [employer]): Stressed importance of continued A1c control to minimize the correction effects of diabetes. Bring accuchecks to office [...] of continued A1c control to minimize the correction effects of diabetes. Bring accuchecks to office when instructed to do so. Check A1c about every 3-6 months. Take medication as prescribed. Get annual eye exam. Encouraged MARGIE/Statin if able to tolerate. Encouraged weight control and encouraged diabetic diet and exercise. See HTn Assessment & Plan (09/30/2019 4:36 PM MANAGER [employer]): DM is well controlled. 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 Troncoso. He is on beta-vinh statin and aspirin Assessment & Plan (08/01/2023 8:13 AM MANAGER [employer]): Continue statin beta-vinh and aspirin Assessment & Plan (01/26/2023 10:47 AM CDT): Stable. Continue per Dr. Troncoso. He is on beta-vinh aspirin and a statin Assessment & Plan (07/26/2022 7:21 PM MANAGER [employer]): Continue per Dr. Troncoso. Patient is on metoprolol aspirin and atorvastatin Assessment & Plan (01/25/2022 7:36 PM CDT): Managed by Dr. Troncoso. Patient is on beta-vinh statin and aspirin Assessment & Plan (08/15/2021 12:17 PM MANAGER [employer]): Continue statin beta-vinh and aspirin Assessment & Plan (03/03/2021 10:54 AM CDT): On BB ASA and statin Assessment & Plan (07/02/2020 9:45 PM CDT): Continue per Cardio On bb, ASA and statin Assessment & Plan (09/16/2019 9:40 AM MANAGER [employer]): Will probably require cardiology clearance prior to scheduling surgery. S/P CABG x 3 05/21/2016 Overview (12/09/2016): S/P CABG x 4 Tobacco dependence in remission 05/21/2016 Overview (12/09/2016): Tobacco abuse, in remission Assessment & Plan (01/26/2023 10:47 AM CDT): Continue cessation Resolved Problems Problem Noted Date Diagnosed Date Resolved Date Positive depression screening 07/24/2025 07/25/2025 BMI 26.0-26.9,adult 08/07/2024 03/17/20 Assessment & Plan (02/11/2025 2:26 PM CDT): Weight/BMI is in healthy range. Continue healthy lifestyle to maintain. Assessment & Plan (08/07/2024 7:24 AM MANAGER [employer]): BMI Follow-up includes: Discussed diet and exercising counseling. Need for influenza vaccination 08/07/2024 03/17/2025 Assessment & Plan (08/07/2024 2:35 PM MANAGER [employer]): Flu vaccine updated in the office today Medicare annual wellness visit, subsequent 08/07/2024 03/17/2025 Assessment & Plan (08/07/2024 2:35 PM MANAGER [employer]): Encouraged healthy lifestyle, good nutrition and exercise. Encouraged Calcium and Vitamin D and weight bearing exercise for bone health. Reviewed immunizations. Reviewed age appropirate screenings. Medicare Wellness Documentation is completed within the chart CRISTINA (acute kidney injury) 12/02/2023 Positive depression screening 11/08/2023 11/08/2023 Annual physical exam 11/08/2023 024 Assessment & Plan (11/08/2023 10:46 AM MANAGER [employer]): Encouraged healthy lifestyle, good nutrition and exercise. Encouraged Calcium and Vitamin D and weight bearing exercise for bone health. Reviewed immunizations Reviewed age appropirate screenings. Prostate cancer screening 11/08/2023 Assessment & Plan (11/08/2023 10:46 AM MANAGER [employer]): Check labs Medicare annual wellness visit, subsequent 07/30/2023 11/08/2023 Assessment & Plan (08/01/2023 8:14 AM MANAGER [employer]): Encouraged healthy lifestyle, good nutrition and exercise. [...] and education provided. BMI 30.0-30.9,adult 01/26/2023 08/01/20 23 Assessment & Plan (01/26/2023 10:10 AM CDT): Discussed the patient's BMI. The BMI is above average. BMI management plan is completed. BMI Follow-up includes: nutrition counseling, exercise counseling and education provided. Medicare annual wellness visit, subsequent 07/26/2022 01/25/2023 Assessment & Plan (07/26/2022 7:23 PM MANAGER [employer]): Encouraged healthy lifestyle, good nutrition and exercise. Encouraged Calcium and Vitamin D and weight bearing exercise for bone health. Reviewed immunizations. Reviewed age appropirate screenings. Medicare Wellness Documentation is completed within the chart BMI 28.0-28.9,adult 07/26/2022 07/25/20 25 Assessment & Plan (03/04/2025 10:37 AM CDT): Weight/BMI is in healthy range. Continue healthy lifestyle to maintain. Assessment & Plan (11/08/2023 10:46 AM MANAGER [employer]): Weight/BMI is in healthy range. Continue healthy lifestyle to maintain. Assessment & Plan (08/01/2023 7:42 AM MANAGER [employer]): Weight/BMI is in healthy range. Continue healthy lifestyle to maintain. Assessment & Plan (07/26/2022 7:22 PM MANAGER [employer]): Weight/BMI is in healthy range. Continue healthy [...] 07/26/2022 Assessment & Plan (08/15/2021 12:19 PM MANAGER [employer]): Flu updated in the office today Obesity (BMI 30-39.9) 07/23/20212021 Assessment & Plan (07/23/2021 1:26 PM MANAGER [employer]): Obesity is unchanged. Discussed the patient's BMI. The BMI is above average. BMI management plan is completed. BMI Follow-up includes: nutrition counseling, exercise counseling and education provided. BMI 30.0-30.9,adult 07/23/2021 01/07/20 Assessment & Plan (07/23/2021 1:26 PM MANAGER [employer]): Obesity is unchanged. Discussed the patient's BMI. [...] re-evaluate Assessment & Plan (08/15/2021 12:19 PM MANAGER [employer]): Probably multifactorial. Check labs and followup to [...] screenings. Assessment & Plan (08/15/2021 12:19 PM MANAGER [employer]): Encouraged healthy lifestyle, good nutrition and exercise. [...] 08/07/2024 Assessment & Plan (11/08/2023 10:46 AM MANAGER [employer]): Probably multifactorial. Check labs and followup to re-evaluate Assessment & Plan (07/26/2022 7:22 PM MANAGER [employer]): Probably multifactorial. Check labs and followup to re-evaluate Assessment & Plan (07/02/2020 9:49 PM CDT): Probably multifactorial. Check labs and followup to re-evaluate Encounter for pre-operative examination 09/30/2019 01/21/2020 Assessment & Plan (09/30/2019 4:34 PM MANAGER [employer]): Total hip planned. Reviewed surgical medical risk including procedure and anesthesia. He will obtain cardiac clearance from his tobacco stripping machine operator. . All questions were answered. He was cleared and form completed/forwarded to surgeon. Primary osteoarthritis of right hip 09/16/2019 03/03/2021 Assessment & Plan (09/30/2019 4:34 PM MANAGER [employer]): Total hip planned. Reviewed surgical medical risk including procedure and anesthesia. He will obtain cardiac clearance from his tobacco stripping machine operator. . All questions were answered. He was cleared and form completed/forwarded to surgeon. Assessment & Plan (09/16/2019 9:41 AM MANAGER [employer]): We discussed the risks, benefits and alternatives [...] 01/21/20 Assessment & Plan (09/25/2019 10:34 AM MANAGER [employer]): Obesity is unchanged. Discussed the patient's BMI. [...] provided. Assessment & Plan (09/25/2019 10:34 AM MANAGER [employer]): Obesity is unchanged. Discussed the patient's BMI. The BMI is above average. BMI management plan is completed. BMI Follow-up includes: nutrition counseling, exercise counseling and education provided. Assessment & Plan (09/16/2019 9:41 AM MANAGER [employer]): We discussed the adverse effects of weight [...] to followup as he lost the postcard Cardiomyopathy 05/21/2016 07/25/2025 Overview (12/09/2016): Cardiomyopathy Assessment & Plan (08/07/2024 2:32 PM MANAGER [employer]): Continue per Cardiology. Will be transitioning care to Dr. Archer Metroprolol 25bid, ASA 81, Atorvastatin 40 lisinopril 20 Last seen 09/2023 and appears stable -- he continues to monitor his bp. Appears compensated today Assessment & Plan (11/08/2023 10:45 AM MANAGER [employer]): Dr. Troncoso is his tobacco stripping machine operator. He manages his cardiomyopathy CAD and hypertension. Meds include metoprolol 25 b.i.d., aspirin 81, atorvastatin 40 and lisinopril 20. Patient appears compensated today. Continue regular follow-up with Dr. Troncoso Assessment & Plan (08/01/2023 8:12 AM MANAGER [employer]): Appears compensated today. Blood pressure is elevated so will determine if his metoprolol is being taking correctly before adding additional medications. Continue per Dr. Troncoso Assessment & Plan (01/26/2023 10:47 AM CDT): Continue per Dr. Troncoso. Follow-up is in March. Appears compensated today Assessment & Plan (07/26/2022 7:21 PM MANAGER [employer]): Appears compensated. Continue per Dr. Troncoso. Not currently on metoprolol aspirin and atorvastatin. Assessment & Plan (01/25/2022 7:35 PM CDT): Managed by Dr. Troncoso Appears compensated today. Continue metoprolol 25 b.i.d. Assessment & Plan (03/03/2021 10:54 AM CDT): Compensated. Continue per Dr. Troncoso Assessment & Plan (07/02/2020 9:46 PM CDT): Per cardio Appears compensated Old myocardial infarction 05/21/2016 Overview (12/09/2016): Non-ST elevation myocardial infarction (NSTEMI) greater than 8 weeks ago Chronic coronary artery disease 03/30/2016 03/11/2022 Encounters Date Type Department Care Team Description 07/26/2025 Telephone [facility] [address] [place] [phone] Joanne Hinkle PA 07/24/2025 9:00 AM MANAGER [employer] Office Visit [facility] [address] [place] [address] [place] [phone] Joanne Hinkle PA Annual physical exam (Primary Dx); Variable compliance with medication therapy; Hypertension associated with diabetes (HCC); Mixed diabetic hyperlipidemia associated with type 2 diabetes mellitus (HCC); Moderate episode of recurrent major depressive disorder (HCC); Primary insomnia; Iron deficiency anemia due to chronic blood loss; Fatigue, unspecified type; Coronary artery disease of kar[place] artery of kar[place] heart with stable angina pectoris; Flu vaccine need; BMI 29.0-29.9,adult 07/24/2025 Orders Only [facility] [address] [place] [phone] Joanne Hinkle PA Variable compliance with medication therapy (Primary Dx) 07/24/2025 Telephone [facility] [address] [place] [address] [place] [phone] [facility] 07/24/2025 Telephone [facility] [address] [place] [address] [address] [place] [phone] Joanne Hinkle PA Medical Question/Miscellaneous from Last 3 Months Immunizations Immunization Administration Dates Next Due Influenza, Quadrivalent, Hig h Dose, Preservative Free, Intrr 07/26/2022,07/23/2021,07/02/2020 Influenza, Trivalent, High D ose, Split, Preservative Free, Intramuscular 07/24/2025,08/07/2024,07/03/2019,05/17,08/16/2017 Influenza, Trivalent, Preser vative Free, Intramuscular 06/05/2015 Influenza, Unspecified 09/05/2024(Deferred: Ada ent Refused) [employer] ([employer]) SARS-CoV-2 Vaccination 01/12/2021 Pfizer SARS-CoV-2 Monovalent Vaccination (12+ Yrs) PURPLE 08/26/2021 Pneumococcal Conjugate PCV 13 04/12/2016 Pneumococcal Polysaccharide PPV23 07/03/2019 ZOSTER LIVE 08/19/2015 Surgical History Surgery Date Site/Laterality Comments CORONARY ARTERY BYPASS GRAFT TOTAL HIP ARTHROPLASTY 10/06/2019 - 11/03/2019 Right Medical History Medical History Date Comments Cardiomyopathy Coronary artery disease Hypertension Hyperlipidemia Arrhythmia Ischemic [...] = 0.6 oz pur e alcohol) socially PHQ-2 Answer Date Recorded PHQ-2 Total Score (If total score is 3 or more points, staff should administer the PHQ-9) 4 07/24/2025 PHQ-9 Answer Date Recorded PHQ-9 Total Score 11 07/24/2025 AUDIT-C Answer Date Recorded Q1: How often do you have a drink containing alcohol? Never 07/24/2025 Q2: How many drinks containi ng alcohol do you have on a typical day when you are drinking? Patient does not drink Q3: How often do you have si x or more drinks on one occasion? Never 07/24/2025 Sex and Gender Information Value Date Recorded Sex Assigned at Not on file Legal Sex Male 5:59 AM MANAGER [employer] Gender Identity Not on file Sexual Orientation Not on file Occupation Industry Job Start Date Job End Date [employer]-Retired Not on file Not on fi le Not on file Last Filed Vital Signs Vital Sign Reading Time Taken Comments Blood Pressure 120/66 07/24/2025 8:36 AM MANAGER [employer] Pulse 86 07/24/2025 8:36 AM MANAGER [employer] Temperature 36.7 C (98 F) 07/24/2025 8:36 AM MANAGER [employer] Respiratory Rate 16 08/01/2023 7:40 AM MANAGER [employer] Oxygen Saturation 97% 07/24/2025 8:36 AM MANAGER [employer] Inhaled Oxygen Concentration - - Weight 91.2 kg (201 lb) 07/24/2025 8:36 AM MANAGER [employer] Height 175.3 cm (5' 9) 07/24/2025 8:36 AM MANAGER [employer] Body Mass Index 29.68 07/24/2025 8:36 AM MANAGER [employer] Plan of Treatment Health Maintenance Due Date Last Done Comments DTaP/Tdap/Td Vaccine (1 - Tdap) 12/20/1956 Hepatitis B Screening 1963 Abdominal Aortic Aneurysm (A AA) Screen 2009 Zoster Vaccine (2 of 3) 10/14/2015 08/19/2015 Foot Exam 03/03/2022 03/03/2021, 02/20/2019 Dilated Eye Exam 03/15/2024 03/15/2023, 03/15/2023 Covid-19 Vaccine (3 - 2024-2 6 season) 2025 08/26/2021, 01/12/2021 Hemoglobin A1C 08/29/2025 02/27/2025, 060 05/2025, 08/07/2024, Additional history exists Albumin Creatinine Ratio, Urine 02/11/2026 02/11/2025, 11/19/2023, 05/16/2023, Additional history exists Lipid Panel 02/11/2026 02/11/2025, 11/03, 05/16/2023, Additional history exists eGFR 02/27/2026 02/27/2025, 02/03, 11/19/2023, Additional history exists Depression Screening 07/24/2026 07/24/2025, 07/24/2025, 03/04/2025, Additional history exists Fall Risk Assessment 07/24/2026 07/24/2025, 03/04/2025, 02/11/2025, Additional history exists Well Visit 65+ 07/24/2026 07/24/2025, 060 05/2025, 08/07/2024, Additional history exists Pneumococcal vaccine 65+ Completed 07/03/2019, 080 04/2016 Influenza Vaccine Completed 07/24/2025, , 07/26/2022, Additional history exists Procedures Procedure Name Priority Date/Time Associated Diagnosis Comments HEMOGLOBIN A1C Routine 02/27/2025 2:50 PM CDT COMPREHENSIVE METABOLIC PANEL Routine 02/27/2025 Hyperkalemia POCT LIPID PANEL Routine 02/11/2025 2:59 PM CDT Type 2 diabetes mellitus with hyperlipidemia (HCC) ALBUMIN CREATININE RATIO, URINE Routine 02/11/2025 2:59 PM CDT Type 2 diabetes mellitus with hyperlipidemia (HCC) DIABETES EYE EXAM Routine 03/15/2023 11:38 AM CDT from Last 3 Months or Most Recently Relevant to Health Maintenance Results * (ABNORMAL) Hemoglobin A1c (02/27/2025 2:50 PM CDT) SCRIBED Hemoglobin A1c 6.3(A) 4.0 - 5.6 % EXTERNAL LAB Blood us Historical Provider LAB BLOOD ORDERABLES Edit ed Result - Final EXTERNAL LAB * (ABNORMAL) Comprehensive metabolic panel (02/27/2025) Pathologist [facility] SCRIBED Sodium 141 137 - 145 mmol/L EXTERNAL LAB SCRIBED Potassium 4.8 3.4 - 5.0 mmol/L EXTERNAL LAB SCRIBED Chloride 113(A) 98 - 107 mmol/L EXTERNAL LAB SCRIBED Carbon Dioxide 20(A) 22 - 30 mmol/L EXTERNAL LAB SCRIBED Anion Gap 8 4 - 12 mmol/L EXTERNAL LAB SCRIBED Urea Nitrogen (BUN) 20 9 - 20 mg/dl EXTERNAL LAB SCRIBED Creatinine 1.20 0.7 - 1.3 mg/dl EXTERNAL LAB SCRIBED Glucose 121(A) 65 - 110 mg/dl EXTERNAL LAB SCRIBED Calcium 8.9 8.4 - 10.2 mg/dl EXTERNAL LAB SCRIBED Bilirubin 0.3 0.2 - 1.3 mg/dl EXTERNAL LAB SCRIBED Plasma Protein 6.7 6.3 - 8.2 g/dl EXTERNAL LAB SCRIBED Albumin 3.6 3.5 - 5.1 g/dl EXTERNAL LAB SCRIBED Alkaline Phosphatase 109 38 - 126 Units/L EXTERNAL LAB SCRIBED Alanine Transaminase (ALT) 12 6 - 50 Units/L EXTERNAL LAB SCRIBED Aspartate Transaminase (AST) 24 17 - 59 Units/L EXTERNAL LAB SCRIBED eGFR 58(A) 0 - 0 EXTERNAL LAB SCRIBED eGFR 0 0 - 0 EXTERNAL LAB Blood 02/27/2025 Joanne [facility] BLOOD ORDERABLES Edite d Result - Final EXTERNAL LAB * (ABNORMAL) POCT lipid panel (02/11/2025 2:59 [...] Joanne [facility] URINE ORDERABLES Final Result [facility] [id number] [address] [id number] * DIABETES EYE EXAM (03/15/2023 11:38 AM CDT) us Historical Provider HEALTH MAINTENANCE Edited Result - Final from Last 3 Months or Most Recently Relevant to Health Maintenance Insurance [facility] AETNA MEDICARE [facility] MEDICARE [facility] Care Teams Extruding Department Supervisor Relationship Specialty Start Date End Date Joanne Hinkle PA [address] [place], [place] [phone] PCP - General Internal Medicine 01/25/19 Bubba Troncoso MD [address] [place], [place] [phone] Consulting Physician Cardiology 09/11/19
--- OUTSIDE RECORDS SUMMARY | 2025-08-08 07:52 | XMS_ITS | Encounter Summary ---
Author Organization [facility] Medical Group Address [address] [place] [address] Care Team Providers Care Shoe Maker Name Role Phone Joanne Hinkle Primary Care Provider [phone] Bubba Troncoso MD Unavailable [phone] Encounter Details Date Type Department Care Team (Late st Contact Info) Description 10/28/2016 Orders Only [facility] ProviderKory MD [address] [place], [place] [id number] Social History Tobacco Use Types Packs/Day Years Used Date Smoking Tobacco: Former Cigarettes Q uit: 09/05/2004 Alcohol Use Standard Drinks/Week Comments No 0 (1 standard drink = 0.6 oz pur e alcohol) Sex and Gender Information Value Date Recorded Sex Assigned at Not on file 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 Historical Provider [facility] Final Result * CARDIOLOGY REPORT (10/28/2016) Anatomical Region Laterality Modality Other Narrative 10/28/2016 Ordered by an unspecified provider. us Historical Provider [facility] Final Result documented in this encounter Visit Diagnoses Not on filedocumented in this encounter Care Teams Shoe Maker Relationship Specialty Start Date End Date Joanne Hinkle PA [address] [place], [place] [phone] PCP - General Internal Medicine 01/25/19 Bubba Troncoso MD [address] [place], [place] [phone] Consulting Physician Cardiology 09/11/19 documented as of this encounter
--- OUTSIDE RECORDS SUMMARY | 2025-08-08 07:52 | XMS_ITS | Encounter Summary ---
Author Organization [facility] Healthcare Address [address] [place] [address] Care Team Providers Care Diamond Wheel Molder Name Role Phone Joanne Hinkle Primary Care Provider [phone] Bubba Troncoso MD Unavailable [phone] Encounter Details Date Type Department Care Team (Late st Contact Info) Description 02/19/2025 Orders Only [facility] [address] [place] [id number] Scanning, Provider Social History Tobacco Use Types Packs/Day Years Used Date Smoking Tobacco: Former Cigarettes Q uit: 4 Smokeless Tobacco: Never Alcohol Use Standard Drinks/Week [...] on file 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 Gender Identity Not on file Sexual Orientation Not on file Occupation Industry Job Start Date Job End Date [employer]-Retired Not on file Not on fi le Not on file documented as of this encounter Plan of Treatment Not on file documented as of this encounter Procedures Procedure Name Priority Date/Time Associated Diagnosis Comments SCAN - LABS 02/19/2025 documented in this encounter Results * SCAN - LABS (02/19/2025) us Provider Scanning Final Result documented in this encounter Visit Diagnoses Not on filedocumented in this encounter Care Teams Diamond Wheel Molder Relationship Specialty Start Date End Date Joanne Hinkle PA [address] [place], [place] [phone] PCP - General Internal Medicine 01/25/19 Bubba Troncoso MD [address] [place], [place] [phone] Consulting Physician Cardiology 09/11/19 documented as of this encounter
--- OUTSIDE RECORDS SUMMARY | 2025-08-08 07:52 | XMS_ITS | Encounter Summary ---
Author Organization [facility] Healthcare Address [address] [place] [address] Care Team Providers Care Patternmaker Bench Name Role Phone Joanne Hinkle Primary Care Provider [phone] Bubba Troncoso MD Unavailable [phone] Encounter Details Date Type Department Care Team (Late st Contact Info) Description 02/21/2025 Telephone [facility] Medical Group Family Medicine [address] [place] [address] Joanne Hinkle PA [address] [place] [address] Social History Tobacco Use Types Packs/Day Years [...] on file 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 Gender Identity Not on file Sexual Orientation Not on file Occupation Industry Job Start Date Job End Date [employer]-Retired Not on file Not on fi le Not on file documented as of this encounter Plan of Treatment Not on file documented as of this encounter Visit Diagnoses Not on filedocumented in this encounter Care Teams Patternmaker Bench Relationship Specialty Start Date End Date Joanne Hinkle PA [address] [place], [place] [phone] PCP - General Internal Medicine 01/25/19 Bubba Troncoso MD [address] [place] [address] Consulting Physician Cardiology 09/11/19 documented as of this encounter
--- OUTSIDE RECORDS SUMMARY | 2025-08-08 07:52 | XMS_ITS | Encounter Summary ---
Author Organization [facility] Healthcare Address [address] [place] [address] Care Team Providers Care Rn Ed Name Role Phone Joanne Hinkle Primary Care Provider [phone] Bubba Troncoso MD Unavailable [phone] Reason for Visit * Reason Onset Date Comments Medical Question/Miscellaneous 07/24/2025 Encounter Details Date Type Department Care Team (Late st Contact Info) Description 07/24/[address] 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 Gender Identity Not on file Sexual Orientation Not on file Occupation Industry Job Start Date Job End Date [employer]-Retired Not on file Not on fi le Not on file documented as of this encounter Functional Status * In the past year, patient experienced: Question Answer Date of Assessment Author One or more falls in the last year 0 2024 8:43 AM Isabela Perea MA * BP Location Answer Date of Assessment Author Right arm 07/24/2025 8:36 AM Mahamed Perea MA * AUDIT-C Score Answer Date of Assessment Author 0 07/24/2025 8:40 AM Mahamed Perea MA * Alcohol Use Question Answer Date of Assessment Author Q1: How often do you have a drink containing alcohol? Never 07/24/2025 8:40 AM Isabela Perea M A Q2: How many drinks containing alcohol do you have on a typical day when you are drinking? Patient does not drink 07/24/2025 8:40 AM Isabela Perea MA Q3: How often do you have six or more drinks on one occasion? Never 07/24/2025 8:40 AM Isabela Perea M A * BP Location Answer Date of Assessment Author Right arm 07/24/2025 8:36 AM Mahamed Perea MA documented as of this encounter Miscellaneous Notes * Telephone Encounter - Arely Bush LPN - 07/24/2025 12:19 PM RAILCAR CARPENTER Referral order changed to [facility]. Patient information will be faxed as soon as office visit note is completed. CAR CARPENTER * Telephone Encounter - Arely Bush LPN - 07/24/2025 12:13 PM RAILCAR CARPENTER [facility] returned call and stated they take his insurance and will be able to see him within the next few days. CAR CARPENTER * Telephone Encounter - Arely Bush LPN - 07/24/2025 10:27 AM RAILCAR CARPENTER Call placed to [facility] to see if they take pt's insurance and if they have the staffing to admit pt. Message left with both companies to call back. CAR CARPENTER * Telephone Encounter - Herminia De Guzman - 07/24/2025 10:05 AM CST Medical Question/Miscellaneous Caller???s Concern: Summer with [facility] Home [facility]. Received a Referral, and has to decline the Referral, as they are at full Capacity, and cannot get to the Patient in a timely and safe manner. Does message need to be routed? Yes-Action Needed CAR CARPENTER documented in this encounter Plan of Treatment Not on file documented as of this encounter Visit Diagnoses Not on filedocumented in this encounter Care Teams Rn Ed Relationship Specialty Start Date End Date Joanne Hinkle PA [address] [place] [address] PCP - General Internal Medicine 01/25/19 Bubba Troncoso MD [address] [place] [address] Consulting Physician Cardiology 09/11/19 documented as of this encounter
--- OUTSIDE RECORDS SUMMARY | 2025-08-08 07:52 | XMS_ITS | Encounter Summary ---
Author Organization [facility] Healthcare Address [address] [place] [address] Care Team Providers Care Assistant Men'S Lacrosse Coach Name Role Phone Joanne Hinkle Primary Care Provider [phone]- [phone] Bubba Troncoso MD Unavailable [phone] Encounter Details Date Type Department Care Team (Late st Contact Info) Description 03/05/2025 Telephone [facility] Medical Group Family Medicine [address] [place] [address] Joanne Hinkle PA [address] [place] [address] Social History Tobacco Use Types Packs/Day Years Used Date Smoking Tobacco: Former Cigarettes Q uit: 1953 Smokeless Tobacco: Never Alcohol Use Standard Drinks/Week Comments Not Currently 0 (1 standard drink = 0.6 oz pur e alcohol) socially AUDIT-C Answer Date Recorded Q1: How often do you have a drink containing alcohol? Never 03/04/2025 Q2: How many drinks containi ng alcohol do you have on a typical day when you are drinking? Patient does not drink Q3: How often do you have si x or more drinks on one occasion? 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 Gender Identity Not on file Sexual Orientation Not on file Occupation Industry Job Start Date Job End Date [employer]-Retired Not on file Not on fi le Not on file documented as of this encounter Plan of Treatment Not on file documented as of this encounter Visit Diagnoses Not on filedocumented in this encounter Care Teams Assistant Men'S Lacrosse Coach Relationship Specialty Start Date End Date Joanne Hiknle PA [address] [place], [place] [phone] PCP - General Internal Medicine 01/25/19 Bubba Troncoso MD [address] [place] [address] Consulting Physician Cardiology 09/11/19 documented as of this encounter
[2025-08-08 08:44] LABS: Hematocrit 39.5 % (42.0-52.0); Hemoglobin 12.6 g/dL (14.0-18.0); Immature Granulocyte Percent A 0.3 % (0-0.5); Lymphocytes Absolute Auto 2.32 K/mm3 (0.9-3.2); Mean Corpuscular HGB Conc 31.9 g/dl (32-36); Mean Corpuscular Hemoglobin 26.3 pg (26-34); Mean Corpuscular Volume 82.3 fl (80-100); Nucleated Red Blood Cells Absolute Auto 0.000 K/mm3 (0.0-0.012); Nucleated Red Blood Cells Perc 0.0 % (0.0-0.2); Platelet Count Result 408 k/mm3 (150-375); Red Blood Count 4.80 M/mm3 (4.6-6.20); White Blood Count 9.6 K/mm3 (4.5-10.0)
[2025-08-08 08:59] LABS: Alanine Aminotransferase 20 U/L (6-50); Albumin Level 4.5 g/dL (3.5-5.1); Alkaline Phosphatase 141 U/L (38-126); Anion Gap 7 mmol/L (4-12); Aspartate Amino Transferase 29 U/L (17-59); Bilirubin,Total 0.5 mg/dL (0.2-1.3); Blood Urea Nitrogen 22 mg/dL (9-20); Calcium 9.3 mg/dL (8.4-10.2); Carbon Dioxide 25 mmol/L (22-30); Chloride 107 mmol/L (98-107); Cholesterol 171 mg/dL (0-200); Estimated Glomerular Filt Rate 53; Glucose 211 mg/dL (65-110); HDL Direct 35 mg/dL; Magnesium 2.1 mg/dL (1.6-2.3); Potassium 5.1 mmol/L (3.4-5.0); Sodium 139 mmol/L (137-145); Total Protein 7.9 g/dL (6.3-8.2); Triglycerides 284 mg/dL (<150)
[2025-08-08 09:04] LABS: Iron 47 ug/dL (49-181)
[2025-08-08 09:08] LABS: Hemoglobin A1C 7.3 % (<5.7)
[2025-08-08 09:14] LABS: Percent Iron Saturation 11 % (20-50)
[2025-08-08 09:41] LABS: Thyroid Stimulating Hormone 2.040 uIU/mL (0.465-4.680)
[2025-08-08 09:45] LABS: Ferritin 15.90 ng/mL (11.1-264)
[2025-08-08 10:00] LABS: Vitamin B12 408.0 pg/mL (239-931)
== END 2025-08-08 07:43 | disposition home or self-care (01) ==
LOC: ANHLAB 07:46
PROVIDERS: PCP Physician Assistant; Visit Provider Physician Assistant
DX: E11.59 Type 2 diabetes mellitus with other circulatory complications (principal); I15.2 Hypertension secondary to endocrine disorders; D50.0 Iron deficiency anemia secondary to blood loss (chronic)
CPT/HCPCS: 36415; 80053; 80061; 82607; 82728; 83036; 83540; 83550; 83735; 84443; 85025